=== PATIENT | female | born 1930 | race Caucasian/White ===

== ENCOUNTER 2017-04-12 19:32 | Inpatient (IN) ==
[2017-04-12] MEDS ORDERED: Naloxone 0.4 MG/ML INJ IVP ONE (19:42)
[2017-04-12] MEDS ORDERED: Ipratropium/Albuterol Neb 3 ML IH ONE (19:45)
[2017-04-12] MEDS ORDERED: 0.9 % Sodium Chloride 1,000 ML IVC SCH (19:45)
[2017-04-12] MEDS ORDERED: methylPREDNISolone 125 MG/2 ML VIAL IVP ONE (19:45)
[2017-04-12] MEDS ORDERED: 0.9 % Sodium Chloride 500 ML IVC ONE (19:45)
[2017-04-12 19:52] LABS: Basophils % 0.2 %; Eosinophils # 0.1 K/mcL (0.0-0.6); Eosinophils % 0.4 %; Hematocrit 33.2 % (35.3-44.9); Immature Granulocytes % 1.5 % (0-4); Lymphocytes % 5.6 %; Mean Corpuscular HGB Conc 30.1 g/dL (31.6-35.5); Mean Corpuscular Hemoglobin 28.3 pg (28.0-33.3); Mean Corpuscular Volume 94.1 fL (83.0-100.0); Mean Platelet Volume 9.7 fL (9.4-12.4); Monocytes # 1.3 K/mcL (0.0-1.3); Monocytes % 7.7 %; Neutrophils # 14.7 K/mcL (1.6-8.9); Platelet Count 405 K/mcL (140-400); Red Blood Count 3.53 M/mcL (3.82-4.97); Red Cell Distribution Width 14.5 % (11.5-14.5); Segmented Neutrophils % 84.6 %
[2017-04-12 20:01] LABS: Calcium 9.5 mg/dL (8.6-10.8); Potassium 4.2 mEq/L (3.5-4.5)
[2017-04-12 20:06] LABS: Bilirubin,Urine Negative (Negative); Blood,Urine Trace (Negative); Clarity,Urine Cloudy (Clear); Color,Urine Yellow (Yellow); Glucose,Urine (UA) Normal (Normal); Ketones,Urine Negative (Negative); Leukocyte Esterase,Urine Large (Negative); Nitrite,Urine Negative (Negative); Protein,Urine Negative (Neg-Trace); Specific Gravity,Urine 1.015 (1.010-1.025); Urobilinogen,Urine Normal (Normal)
[2017-04-12 20:07] LABS: Prothrombin Time 59.8 Seconds (9.4-12.1)
[2017-04-12 20:08] LABS: INR 5.4
[2017-04-12 20:08] LABS: Bacteria,Urine None Seen per hpf (None-Few); Hyaline Casts,Urine Few per lpf (None-Few); RBC,Urine 0-3 per hpf (0-3); Squamous Epithelial Cell,Urine Many per lpf (None-Few); WBC,Urine 50-100 per hpf (0-3)
[2017-04-12] MEDS ORDERED: Piperacillin/Tazobactam 3.375 GM in D5% in Water (Mini-Bag+) 100 ML IVPB ONE (20:17)
--- NOTE | 2017-04-12 20:19 | Emergency Department Note ---
Disposition Clinical Impression: Supratherapeutic INR, Acute on chronic respiratory failure with hypoxemia, Dehydration Community acquired pneumonia Qualifiers: Laterality: left Lung location: unspecified part of lung Qualified Code(s): J18.9 - Pneumonia, unspecified organism A-fib Qualifiers: Atrial fibrillation type: unspecified Qualified Code(s): I48.91 - Unspecified atrial fibrillation Chronic kidney disease (CKD) Qualifiers: Chronic kidney disease stage: unspecified stage Qualified Code(s): N18.9 - Chronic kidney disease, unspecified Sepsis Qualifiers: Sepsis type: sepsis due to unspecified organism Qualified Code(s): A41.9 - Sepsis, unspecified organism Disposition: Admitted As Inpatient Condition: Fair Time of Disposition: 20:35 SOB HPI - General Chief Complaint: ED Shortness of Breath/Dyspnea Stated Complaint: OLIVE/Pain Time Seen by Provider: 04/12/17 19:32 Source: patient, EMS Mode of arrival: EMS Limitations: altered mental status, physical limitation, age Nursing Notes Reviewed: Yes Vital Signs Reviewed: Yes - History of Present Illness 87-year-old female history of heart failure aortic aneurysm respiratory failure on oxygen patient has presented with 2 days worsening generalized weakness productive cough decreased activity per family, she has been on hospice for multiple comorbidities end-stage heart failure COPD, they like to revoke her hospice to admit her to the hospital for antibiotics if indicated. She has some sort of infection. Patient does not give much of a history, history is obtained from her family, son, who is at bedside. Denies chest pain abdominal pain. Pt Subjective Complaint: shortness of breath Severity: mild Improves with: oxygen Associated symptoms: Reports: cough, sputum production. Denies: chest pain - Related Data Home Medications Medication Instructions Recorded Confirmed Isosorbide MONOnitrate (24 HR) 30 mg PO QAM #0 05/15/15 04/12/17 [Imdur] LORazepam [Ativan] 0.5 mg PO Q4H PRN 04/22/16 04/12/17 Ondansetron [Zofran] 8 mg PO TID PRN 04/22/16 04/12/17 OxyCODONE Immed Rel [Roxicodone 5 5 mg PO Q4H PRN 04/22/16 04/12/17 MG] Polyethylene Glycol 3350 [MiraLAX] 17 gm PO DAILY 04/22/16 04/12/17 Potassium Chloride [Klor-Con 10 meq PO QAM 04/22/16 04/12/17 Sprinkle] TraZODone 25 mg PO BID PRN 04/22/16 04/12/17 Atropine Sulfate in 0.9% NaCl 2 drop SL Q2H PRN 04/12/17 04/12/17 [Atropine 0.01%-Ns Eye Drops] Diltiazem HCl [Diltiazem ER] 240 mg PO DAILY 04/12/17 04/12/17 Escitalopram Oxalate 5 mg PO QAM 04/12/17 04/12/17 Ipratropium/Albuterol Neb [Duoneb] 3 ml IH Q6H PRN 04/12/17 04/12/17 LORazepam [Ativan] 1 mg PO BID 04/12/17 04/12/17 Metoprolol XL (24 HR) Succ [Toprol 50 mg PO DAILY 04/12/17 04/12/17 XL] Morphine Oral CONC [Roxanol] 5 mg PO Q4H PRN 04/12/17 04/12/17 Omeprazole [PriLOSEC] 20 mg PO DAILY 04/12/17 04/12/17 Oxygen 3 - 5 l NS CONT 04/12/17 04/12/17 Previous Rx's Medication Instructions Recorded Furosemide [Lasix] 80 mg PO BID #60 tablet 03/14/16 Docusate [Colace] 100 mg PO BID #60 capsule 03/15/16 Allergies Allergy/AdvReac Type Severity Reaction Status Date / Time atorvastatin [From Lipitor] AdvReac See Verified 03/03/16 07:42 Comments Sulfa (Sulfonamide AdvReac Rash Verified 03/03/16 07:42 Antibiotics) Limitations: ROS unobtainable due to patients medical condition (Obtained partially from family) Past Medical History - Past Medical History Source: unable to obtain, old records reviewed, obtained from family Medical history: Reports: aortic aneurysm, arthritis, atrial fibrillation, CHF, COPD, coronary artery disease, DVT, GERD, hyperlipidemia, hypertension, osteoporosis, RA, renal disease, thyroid disease, venous stasis, valvular heart disease, other Surgical history: Reports: no surgical history, other Psychiatric history: Reports: anxiety - Social History Smoking Status: Never smoker Smokeless Tobacco Status: No Alcohol use: Reports: none Drug use: Reports: none Physical Exam Constitutional: Cachectic elderly female on oxygen sat 96%, tachypneic Eyes: PERRLA, sclera anicteric ENT & Mouth: MM dry Neck: normal inspection, neck is supple Resp: CTA bilaterally, no resp distress CV: irregularly irregular no m/g/r GI: normal inspection, soft, no guarding or rigidity Neuro: GCS E2V2M6, 10, CNII-XII grossly intact,pupils pinpoint reactive, OVIEDO Skin: on limited exam, skin with poor turgor - General Limitations: altered mental status, physical limitation, age General appearance: in distress Course Course Narrative: Cachectic elderly female appears dehydrated, discussed with the family she is a DNR CCA, but they would like antibiotics and to revoke hospice for an inpatient admission, septic workup initiated, due to the patient's heart failure comorbidity and age, if she does not meet criteria for severe sepsis we will not initiate 30 mL parking bolus but will start broad-spectrum antibiotics after lactate and blood cultures. - Reevaluation(s) Reevaluation #1: Patient with evidence of pneumonia and possible UTI started on Vanco and Zosyn empirically for community acquired pneumonia, sepsis, acute on chronic respiratory failure, dehydration failure to thrive admitted to the hospitalist service in serious condition Time: 20:34 Vital Signs Temperature 97.0 F L 04/12/17 19:33 Pulse Rate 78 04/12/17 19:33 Respiratory Rate 28 04/12/17 19:33 Blood Pressure 116/85 04/12/17 19:33 O2 Sat by Pulse Oximetry 96 04/12/17 19:33 Temperature 97.0 F L 04/12/17 19:33 Pulse Rate 91 04/12/17 20:33 Respiratory Rate 20 04/12/17 21:30 Blood Pressure 125/76 04/12/17 21:30 O2 Sat by Pulse Oximetry 96 04/12/17 20:33 Oxygen Delivery Oxygen Delivery Nasal Cannula Shortness of Breath/Dyspnea - Differential Diagnosis Likely: acute exacerbation of chronic obstructive airways disease, congestive heart failure, pneumonia, pulmonary embolism - Medical Records Medical records reviewed: Yes I reviewed the patient's medical records. - Lab Data Lab results reviewed: Yes I reviewed the patient's lab results. Result diagrams: 04/12/17 19:37 04/12/17 19:37 Lab Results 04/12/17 04/12/1717 Range/Units 19:37 19:37 19:37 WBC 17.4 H (4.3-11.1) K/mcL RBC 3.53 L (3.82-4.97) M/mcL Hgb 10.0 L (11.5-15.4) g/dL Hct 33.2 L (35.3-44.9) % MCV 94.1 (83.0-100.0) fL MCH 28.3 (28.0-33.3) pg MCHC 30.1 L (31.6-35.5) g/dL RDW 14.5 (11.5-14.5) % Plt Count 405 H (140-400) K/mcL MPV 9.7 (9.4-12.4) fL Immature Gran % 1.5 (0-4) % Seg Neutrophils % 84.6 % Lymphocytes % 5.6 % Monocytes % 7.7 % Eosinophils % 0.4 % Basophils % 0.2 % Neutrophils # 14.7 H (1.6-8.9) K/mcL Lymphocytes # 1.0 (0.6-4.6) K/mcL Monocytes # 1.3 (0.0-1.3) K/mcL Eosinophils # 0.1 (0.0-0.6) K/mcL Basophils # 0.0 (0.0-0.2) K/mcL PT (9.4-12.1) Seconds INR Sodium 142 (136-145) mEq/L Potassium 4.2 (3.5-4.5) mEq/L Chloride 99 (98-109) mEq/L Carbon Dioxide 31 H (19-29) mEq/L BUN 70 H (7-20) mg/dL Creatinine 1.84 H (0.57-1.11) mg/dL Est GFR ( Amer) 32 L (> 60) Est GFR (Non-Af Amer) 26 L (> 60) BUN/Creatinine Ratio 38 H (6-26) Glucose 131 H (70-99) mg/dL Calculated Osmolality 316 H (280-300) Lactic Acid 0.9 (0.5-2.2) mmol/L Calcium 9.5 (8.6-10.8) mg/dL Phosphorus 3.7 (2.3-4.7) mg/dL Magnesium 2.2 (1.6-2.6) mg/dL Total Bilirubin 1.6 H (0.2-1.2) mg/dL Direct Bilirubin 1.1 H (0.0-0.5) mg/dL Indirect Bilirubin 0.5 (0.0-1.2) mg/dL AST 10 (5-34) Units/L ALT 6 (0-55) Units/L Alkaline Phosphatase 166 H (38-126) Units/L Troponin I (0-0.03) ng/mL B-Natriuretic Peptide (0-100) pg/mL Serum Total Protein 7.3 (6.0-8.3) g/dL Albumin 2.4 L (3.5-5.0) g/dL Globulin 4.9 H (2.4-3.5) g/dL Albumin/Globulin Ratio 0.5 L (1.1-2.2) Urine Color (Yellow) Urine Clarity (Clear) Urine pH (5.0-8.0) pH Units Ur Specific [place] (1.010-1.025) Urine Protein (Neg-Trace) mg/dL Urine Glucose (UA) (Normal) mg/dL Urine Ketones (Negative) mg/dL Urine Blood (Negative) Urine Nitrite (Negative) Urine Bilirubin (Negative) Urine Urobilinogen (Normal) mg/dL Ur Leukocyte Esterase (Negative) Urine Microscopic RBC (0-3) per hpf Urine Microscopic WBC (0-3) per hpf Ur Squamous Epith Cells (None-Few) per lpf Urine Bacteria (None-Few) per hpf Hyaline Casts (None-Few) per lpf Ur Culture Indicated? (NO) 04/12/17 04/12/17 04/12/17 Range/Units 19:37 19:37 19:37 WBC (4.3-11.1) K/mcL RBC (3.82-4.97) M/mcL Hgb (11.5-15.4) g/dL Hct (35.3-44.9) % MCV (83.0-100.0) fL MCH (28.0-33.3) pg MCHC (31.6-35.5) g/dL RDW (11.5-14.5) % Plt Count (140-400) K/mcL MPV (9.4-12.4) fL Immature Gran % (0-4) % Seg Neutrophils % % Lymphocytes % % Monocytes % % Eosinophils % % Basophils % % Neutrophils # (1.6-8.9) K/mcL Lymphocytes # (0.6-4.6) K/mcL Monocytes # (0.0-1.3) K/mcL Eosinophils # (0.0-0.6) K/mcL Basophils # (0.0-0.2) K/mcL PT 59.8 H* (9.4-12.1) Seconds INR 5.4 H* Sodium (136-145) mEq/L Potassium (3.5-4.5) mEq/L Chloride (98-109) mEq/L Carbon Dioxide (19-29) mEq/L BUN (7-20) mg/dL Creatinine (0.57-1.11) mg/dL Est GFR ( Amer) (> 60) Est GFR (Non-Af Amer) (> 60) BUN/Creatinine Ratio (6-26) Glucose (70-99) mg/dL Calculated Osmolality (280-300) Lactic Acid (0.5-2.2) mmol/L Calcium (8.6-10.8) mg/dL Phosphorus (2.3-4.7) mg/dL Magnesium (1.6-2.6) mg/dL Total Bilirubin (0.2-1.2) mg/dL Direct Bilirubin (0.0-0.5) mg/dL Indirect Bilirubin (0.0-1.2) mg/dL AST (5-34) Units/L ALT (0-55) Units/L Alkaline Phosphatase (38-126) Units/L Troponin I 0.03 (0-0.03) ng/mL B-Natriuretic Peptide 1146 H (0-100) pg/mL Serum Total Protein (6.0-8.3) g/dL Albumin (3.5-5.0) g/dL Globulin (2.4-3.5) g/dL Albumin/Globulin Ratio (1.1-2.2) Urine Color (Yellow) Urine Clarity (Clear) Urine pH (5.0-8.0) pH Units Ur Specific [place] (1.010-1.025) Urine Protein (Neg-Trace) mg/dL Urine Glucose (UA) (Normal) mg/dL Urine Ketones (Negative) mg/dL Urine Blood (Negative) Urine Nitrite (Negative) Urine Bilirubin (Negative) Urine Urobilinogen (Normal) mg/dL Ur Leukocyte Esterase (Negative) Urine Microscopic RBC (0-3) per hpf Urine Microscopic WBC (0-3) per hpf Ur Squamous Epith Cells (None-Few) per lpf Urine Bacteria (None-Few) per hpf Hyaline Casts (None-Few) per lpf Ur Culture Indicated? (NO) 04/12/17 Range/Units 19:52 WBC (4.3-11.1) K/mcL RBC (3.82-4.97) M/mcL Hgb (11.5-15.4) g/dL Hct (35.3-44.9) % MCV (83.0-100.0) fL MCH (28.0-33.3) pg MCHC (31.6-35.5) g/dL RDW (11.5-14.5) % Plt Count (140-400) K/mcL MPV (9.4-12.4) fL Immature Gran % (0-4) % Seg Neutrophils % % Lymphocytes % % Monocytes % % Eosinophils % % Basophils % % Neutrophils # (1.6-8.9) K/mcL Lymphocytes # (0.6-4.6) K/mcL Monocytes # (0.0-1.3) K/mcL Eosinophils # (0.0-0.6) K/mcL Basophils # (0.0-0.2) K/mcL PT (9.4-12.1) Seconds INR Sodium (136-145) mEq/L Potassium (3.5-4.5) mEq/L Chloride (98-109) mEq/L Carbon Dioxide (19-29) mEq/L BUN (7-20) mg/dL Creatinine (0.57-1.11) mg/dL Est GFR ( Amer) (> 60) Est GFR (Non-Af Amer) (> 60) BUN/Creatinine Ratio (6-26) Glucose (70-99) mg/dL Calculated Osmolality (280-300) Lactic Acid (0.5-2.2) mmol/L Calcium (8.6-10.8) mg/dL Phosphorus (2.3-4.7) mg/dL Magnesium (1.6-2.6) mg/dL Total Bilirubin (0.2-1.2) mg/dL Direct Bilirubin (0.0-0.5) mg/dL Indirect Bilirubin (0.0-1.2) mg/dL AST (5-34) Units/L ALT (0-55) Units/L Alkaline Phosphatase (38-126) Units/L Troponin I (0-0.03) ng/mL B-Natriuretic Peptide (0-100) pg/mL Serum Total Protein (6.0-8.3) g/dL Albumin (3.5-5.0) g/dL Globulin (2.4-3.5) g/dL Albumin/Globulin Ratio (1.1-2.2) Urine Color Yellow (Yellow) Urine Clarity Cloudy A (Clear) Urine pH 5.0 (5.0-8.0) pH Units Ur Specific [place] 1.015 (1.010-1.025) Urine Protein Negative (Neg-Trace) mg/dL Urine Glucose (UA) Normal (Normal) mg/dL Urine Ketones Negative (Negative) mg/dL Urine Blood Trace H (Negative) Urine Nitrite Negative (Negative) Urine Bilirubin Negative (Negative) Urine Urobilinogen Normal (Normal) mg/dL Ur Leukocyte Esterase Large H (Negative) Urine Microscopic RBC 0-3 (0-3) per hpf Urine Microscopic WBC 50-100 H (0-3) per hpf Ur Squamous Epith Cells Many H (None-Few) per lpf Urine Bacteria None Seen (None-Few) per hpf Hyaline Casts Few (None-Few) per lpf Ur Culture Indicated? YES A (NO) - Radiology Data Radiology results reviewed: Yes I reviewed the patient's radiology results. Head CT 04/12/17 20:20 IMPRESSION: No acute intracranial hemorrhage or mass effect. D/ / Juarez Wagoner MD / Juarez Wagoner MD Interpreting Provider: Juarez Wagoner MD - EKG Data EKG attestation: Yes I reviewed and interpreted this EKG. Rhythm: Reports: A.Fib (A. fib 87 bpm QRS [address] segment elevations or depressions.) Critical Care Time Critical Care Time: Yes Total Critical Care Time: 35 Attestation: Critical care performed: Time is exclusive of separately billable procedures. Time includes: direct patient care, patient reassessment, coordination of patient care, interpretation of data (laboratory data, radiology data, and respiratory data), review of patient's medical records, medical consultation and documentation of patient care. Procedures included in critical care time: Procedures excluded from critical care time: Attestation Statement - Attestation Attestation: I, Monty Romero MD, personally evaluated this patient and discussed their management with the resident physician. I reviewed the resident's note and agree with the documented findings, medical decision making, and plan of care. 87-year-old female with history of COPD and CHF presents to the emergency department by ambulance for decreased mental status and increased difficulty breathing. Patient seen on arrival and unable to provide any history or review of systems. She is breathing spontaneously in response to physical stimuli. Family later arrived and reported patient has had increasing symptoms and worsening over the past 2 days. On examination patient is a thin elderly female some physical stimuli. She is unable to answer questions. There is no cyanosis or diaphoresis. Breath sounds are decreased bilaterally with bibasilar rales. Heart is irregularly irregular. Normal rate. Abdomen is soft with normal bowel sounds. Labs reviewed. WBC 17. INR 5.4. Urinalysis shows 50-100 WBCs with large leukocyte esterase. Head CT negative. Chest x-ray shows bilateral perihilar infiltrates, CHF versus pneumonia. The hospitalist, Dr. Garcia, was consulted and accepted admission of the patient.
[2017-04-12] MEDS ORDERED: Vancomycin 750 MG in D5% in Water 250 ML IVPB ONE ×2 (20:23→20:32)
[2017-04-12 20:37] LABS: Albumin 2.4 g/dL (3.5-5.0); Albumin/Globulin Ratio 0.5 (1.1-2.2); Bilirubin,Direct 1.1 mg/dL (0.0-0.5); Bilirubin,Indirect 0.5 mg/dL (0.0-1.2); Bilirubin,Total 1.6 mg/dL (0.2-1.2); Globulin 4.9 g/dL (2.4-3.5); Magnesium 2.2 mg/dL (1.6-2.6); Phosphorous 3.7 mg/dL (2.3-4.7); Total Protein 7.3 g/dL (6.0-8.3)
[2017-04-12] MEDS ORDERED: Naloxone 0.4 MG/ML INJ IVP PRN (22:17)
[2017-04-12] MEDS ORDERED: Albuterol 2.5 MG/3 ML NEBULIZER IH PRN (22:26)
--- NOTE | 2017-04-12 22:29 | Internal Med History&Physical ---
<Kaylyn Crowley - Last Filed: 04/12/17 23:29> Date of Encounter: 04/12/17 Time of Encounter: 22:11 Assessment and Plan (1) Community acquired pneumonia Current visit: Yes Status: Acute 1 patient has been experiencing increasing shortness of breath as well as cough sputum change of thick yellow sputum. Reports fevers chest x-ray Bilateral perihilar infiltrates. We will continue with oxygen titrated to maintain SPO2 greater than 92% 2 continue with bronchodilators 3 blood cultures have been obtained continue with Teddy and Zomarileen 4 sputum culture Qualifiers: Laterality: unspecified laterality Qualified Code(s): J18.9 - Pneumonia, unspecified organism (2) Acute on chronic respiratory failure Current visit: Yes Status: Acute 1 patient has end-stage COPD oxygen dependent has been increasingly short of breath over the past week requiring increase and oxygen supplementation. She is presently DNR CCA DNI. We will continue to titrate oxygen to maintain SPO2 greater than 92% Qualifiers: Respiratory failure complication: hypoxia Qualified Code(s): J96.21 - Acute and chronic respiratory failure with hypoxia (3) UTI (urinary tract infection) Current visit: No Status: Acute 1 we will continue with Zosyn pending culture sensitivity Qualifiers: Urinary tract infection type: site unspecified Hematuria presence: without hematuria Qualified Code(s): N39.0 - Urinary tract infection, site not specified (4) Chronic kidney disease (CKD), stage III (moderate) Current visit: No Status: Chronic 1 creatinine is 1.89 which appears to be around baseline. We will continue to monitor 2 avoid nephrotoxins 3 renal dose antibiotics 4 monitor intake and output daily weights (5) HTN (hypertension), benign Current visit: No Status: Chronic Presently stable-we will continue with metoprolol/ Lasix 2 low sodium diet (6) Diastolic heart failure due to valvular disease Current visit: No Status: Chronic 1 patient has history of multiple valvular disease echo 03/29/16 EF of 55-60%. We will give IV Lasix 40 mg twice a day now 2 monitor intake and output daily weight 3 low sodium diet Qualifiers: Heart failure chronicity: chronic Qualified Code(s): I50.32 - Chronic diastolic (congestive) heart failure; I38 - Endocarditis, valve unspecified (7) Coronary artery disease Current visit: No Status: Chronic Continue with beta blockers and nitrates Continue with oxygen Qualifiers: Coronary Disease-Associated Artery/Lesion type: [place] artery [place] vs. transplanted heart: [place] heart Associated angina: without angina Qualified Code(s): I25.10 - Atherosclerotic heart disease of [place] coronary artery without angina pectoris (8) A-fib Current visit: Yes Status: Chronic 1 presently in sinus rhythm we will continue with metoprolol and Cardizem Qualifiers: Atrial fibrillation type: unspecified Qualified Code(s): I48.91 - Unspecified atrial fibrillation (9) DVT prophylaxis Current visit: No Status: Acute Heparin subcutaneous (10) COPD (chronic obstructive pulmonary disease) with emphysema Current visit: No Status: Chronic 1 continued with oxygen Bronchodilators Qualifiers: Emphysema type: unspecified Qualified Code(s): J43.9 - Emphysema, unspecified Internal Medicine - H&P: HPI Chief complaint: SOB Admitted From: Emergency Dept Plans for Post Hospital Care: Home History of present illness: Ms. Carrington is a 87 year old female past medical history of oxygen dependent COPD atrial fibrillation diastolic heart failure multi valvular disease coronary artery disease hypertension hyperlipidemia and thyroid disease CK D stage IV aortic aneurysm. The patient is in hospice care for multiple, comorbidities including end-stage heart failure and COPD. The past 2 days she has been experiencing increasing shortness of breath generalized weakness productive cough decreased oral intake. She was placed on a Z-Hemanth Cele has taken 2 doses. Her son states that he has seen her significantly declined in the past 2 days, concerned that she will not improve. She brought to the ER for evaluation, according to the ER records they would like to revoke her hospice status so that she could be admitted for antibiotic treatment if indicated. Requesting DNR CCA DNI. Laboratory was obtained which did feel some leukocytosis 17.4 troponin 0.03 BNP was 146 chemistry creatinine 1.89 lactate 0.9 PTT was 59.8 INR is 5.4. Urinalysis revealed large amount of leuks. Chest x-ray Bilateral perihilar infiltrates. Small effusions are suggested. CHF versus pneumonia. CT of head was negative for any endocrine abnormalities. Blood cultures were obtained patient was given IV fluid as well as inconsistent. She has been admitted for further workup evaluation. Presently the patient appears frail, she is lethargic and arouses to verbal stimuli. Follows simple commands oriented to name and place. Lung sounds scattered crackles in the bases. Respirations slightly labored with some accessory muscle, heart sounds hyperdynamic S1-S2 no rubs clicks or gallops murmurs noted abdomen soft and nontender no pedal edema. She is hemodynamically stable with time. I did review CODE STATUS with patient's son who is at bedside who did agree with DNR CCA DNI Past Med Surg Social Fam HX - Past Medical History Medical history: aortic aneurysm, arthritis, atrial fibrillation, CHF, COPD, coronary artery disease, DVT, GERD, hyperlipidemia, hypertension, osteoporosis, RA, renal disease, thyroid disease, venous stasis, valvular heart disease, other Psychiatric history: anxiety - Past Surgical History Surgical History: no surgical history, other - Social History Smoking Status: Never smoker Smokeless Tobacco Status: No Alcohol use: none Drug use: none - Family History Father Family Member Ethnicity: Non- Living Status: Hx Family Cardiac Disorders: Yes Hx Family Respiratory Disorders: No Hx Family Cancer: No Hx Family GI Disorders: No Hx Family Endocrine Disorder: No Hx Family Neuromuscular Disorders: No Hx Family Neurologic Disorders: No Hx Family HEENT Disorders: No Hx Family Autoimmune Disorders: No Internal Medicine - H&P: Meds Isosorbide MONOnitrate (24 HR) [Imdur] 30 mg PO QAM #0 05/15/15 [History] Furosemide [Lasix] 80 mg PO BID #60 tablet 03/14/16 [Rx] Docusate [Colace] 100 mg PO BID #60 capsule 03/15/16 [Rx] LORazepam [Ativan] 0.5 mg PO Q4H PRN 04/22/16 [History] Ondansetron [Zofran] 8 mg PO TID PRN 04/22/16 [History] OxyCODONE Immed Rel [Roxicodone 5 MG] 5 mg PO Q4H PRN 04/22/16 [History] Polyethylene Glycol 3350 [MiraLAX] 17 gm PO DAILY 04/22/16 [History] Potassium Chloride [Klor-Con Sprinkle] 10 meq PO QAM 04/22/16 [History] TraZODone 25 mg PO BID PRN 04/22/16 [History] Atropine Sulfate in 0.9% NaCl [Atropine 0.01%-Ns Eye Drops] 2 drop SL Q2H PRN [History] Diltiazem HCl [Diltiazem ER] 240 mg PO DAILY 04/12/17 [History] Escitalopram Oxalate 5 mg PO QAM 04/12/17 [History] Ipratropium/Albuterol Neb [Duoneb] 3 ml IH Q6H PRN 04/12/17 [History] LORazepam [Ativan] 1 mg PO BID 04/12/17 [History] Metoprolol XL (24 HR) Succ [Toprol XL] 50 mg PO DAILY 04/12/17 [History] Morphine Oral CONC [Roxanol] 5 mg PO Q4H PRN 04/12/17 [History] Omeprazole [PriLOSEC] 20 mg PO DAILY 04/12/17 [History] Oxygen 3 - 5 l NS CONT 04/12/17 [History] 3 Allergy/AdvReac Type Severity Reaction Status Date / Time atorvastatin [From Lipitor] AdvReac See Verified 03/03/16 07:42 Comments Sulfa (Sulfonamide AdvReac Rash Verified 03/03/16 07:42 Antibiotics) ROS unobtainable: due to mental status All Systems PM: A 10-system review of systems was performed and is negative for pertinent findings except as documented above in the HPI. - Constitutional Vitals: Temp Pulse Resp BP Pulse Ox 97.0 F L 91 20 125/76 96 04/12/17 19:33 04/12/17 20:33 04/12/17 21:30 04/12/17 21:30 04/12/17 20:33 General appearance: Present: cachectic, A&O X 2, mild distress - Head Head exam: Present: atraumatic, normocephalic - Eye Eye exam: Present: PERRL, conjuntiva pink, sclera anicteric Pupils: Present: PERRL - Neck Neck exam general surgery: Present: supple, trachea midline. Absent: lymphadenopathy - Respiratory Respiratory exam: Present: rales. Absent: accessory muscle use, rhonchi, wheezes - Cardiovascular Cardiovascular exam: Present: RRR, +S1, +S2. Absent: diastolic murmur, gallop, rubs, systolic murmur - GI/Abdominal GI/Abdominal exam: Present: normal bowel sounds, soft, no peritoneal signs. Absent: distended, tenderness - Extremities Exam Extremities exam: Present: warm, radial pulses palpable and symmetrical. Absent : calf tenderness, cyanotic, pedal edema - Neurological Exam Neurological exam: Present: CN II-XII intact, no focal deficits. Absent: pronater drift, facial droop, speech deficit Additional comments: Lethargic - Skin Skin exam: Present: dry, intact Internal Med - H&P Results - Labs CBC & Chem 7: 04/12/17 19:37 04/12/17 19:37 - Diagnostic Studies Other Images Additional comments: Chest X-Ray 04/12/17 19:41 IMPRESSION: Bilateral perihilar infiltrates. Small effusions are suggested. Differential includes CHF versus pneumonia. D/ / Hebrert Solares MD / Herbert Solares MD Interpreting Provider: Herbert Solares MD Head CT 04/12/17 20:20 IMPRESSION: No acute intracranial hemorrhage or mass effect. D/ / Juarez Wagoner MD / Juarez Wagoner MD Interpreting Provider: uJarez Wagoner MD <Jordi Salazar - Last Filed: 04/13/17 01:11> Date of Encounter: 04/13/17 Internal Medicine - H&P: HPI History of present illness: Ms. Carrington is a 87 year old female All Systems PM: A 10-system review of systems was performed and is negative for pertinent findings except as documented above in the HPI. - Constitutional Vitals: Temp Pulse Resp BP Pulse Ox 98.8 F 82 80 121/102 99 04/13/17 00:49 04/13/17 00:49 04/13/17 00:49 04/13/17 00:49 04/13/17 00:49 Internal Med - H&P Results - Labs CBC & Chem 7: 04/13/17 00:12 04/13/17 00:12 Labs: Short CBC 04/13/17 Range/Units 00:12 WBC 16.3 H (4.3-11.1) K/mcL Hgb 9.5 L (11.5-15.4) g/dL Hct 31.3 L (35.3-44.9) % Plt Count 381 (140-400) K/mcL Neutrophils # 15.4 H (1.6-8.9) K/mcL BMP 04/13/17 00:12 Sodium 143 Potassium 3.6 Chloride 103 Carbon Dioxide 28 BUN 65 H Creatinine 1.58 H Glucose 167 H Calcium 9.0 Cardiac Enzymes 04/13/17 Range/Units 00:12 Troponin I 0.02 (0-0.03) ng/mL - Attending Attestation I examined this patient and my medical decision-making was reviewed with the Resident Physician. I agree with the documented findings, disposition and treatment plan as described except to the extent set forth below. Patient is a 87-year-old female with multiple comorbid conditions. She presents to the ED with complaints of shortness of breath. She was brought in by family. She has been on hospice at home. She was started on azithromycin a few days ago for upper and lower respiratory infection. Her condition is slowly declining over the past 2 days. She was brought in for possible pneumonia. Patient is drowsy and lethargic. She opens eyes to verbal commands. She does not follow verbal commands well. Initial evaluation revealed bilateral infiltrates seen on x-ray. Her white count is elevated and INR is also elevated. Her H&H is stable and she does not have any active bleeding. Patient will need IV antibiotics and DuoNeb breathing treatment and IV Lasix. I discussed about the patient's guarded condition and poor prognosis with the son. He wants patient to be DNR Comfort Care and DNI status. He states that he wants the patient to be treated with IV antibiotics and breathing treatments and does not want any other aggressive measures. Palliative care will evaluate patient in the morning.
[2017-04-12] MEDS: Ipratropium/Albuterol Neb 3 ML IH SCH (23:42)
[2017-04-12] MEDS: *HR* Morphine 2 MG/ML SYRINGE IVP PRN (23:43)
[2017-04-12] MEDS: Furosemide 40 MG/4 ML VIAL IVP SCH (23:49)
[2017-04-13 00:30] LABS: Basophils % 0.2 %; Hematocrit 31.3 % (35.3-44.9); Hemoglobin 9.5 g/dL (11.5-15.4); Immature Granulocytes % 1.9 % (0-4); Lymphocytes # 0.4 K/mcL (0.6-4.6); Lymphocytes % 2.2 %; Mean Corpuscular HGB Conc 30.4 g/dL (31.6-35.5); Mean Corpuscular Hemoglobin 28.7 pg (28.0-33.3); Mean Corpuscular Volume 94.6 fL (83.0-100.0); Mean Platelet Volume 9.6 fL (9.4-12.4); Monocytes # 0.2 K/mcL (0.0-1.3); Monocytes % 1.2 %; Neutrophils # 15.4 K/mcL (1.6-8.9); Platelet Count 381 K/mcL (140-400); Red Blood Count 3.31 M/mcL (3.82-4.97); Red Cell Distribution Width 14.4 % (11.5-14.5); Segmented Neutrophils % 94.5 %
[2017-04-13 00:33] LABS: Potassium 3.6 mEq/L (3.5-4.5)
[2017-04-13 00:43] LABS: INR 4.8; Prothrombin Time 53.9 Seconds (9.4-12.1)
[2017-04-13] MEDS: Ipratropium/Albuterol Neb 3 ML IH SCH ×6 (04:06→23:06)
[2017-04-13 04:51] LABS: INR 4.3
[2017-04-13 04:53] LABS: Prothrombin Time 47.9 Seconds (9.4-12.1)
[2017-04-13] MEDS ORDERED: Vancomycin (wt based) 1,000 MG VIAL IVPB SCH (09:00)
--- NOTE | 2017-04-13 10:47 | Palliative - Consult Note ---
Date of Encounter: 04/13/17 Time of Encounter: 09:25 - Assessment and Plan (1) Diastolic heart failure due to valvular disease Current Visit: No Status: Chronic Assessment and plan: Patient is reportedly hospice eligible for diastolic heart failure. The patient 's family's plan is to reinstate hospice on discharge. Plan as per hospitalist team. Qualifiers: Heart failure chronicity: chronic Qualified Code(s): I50.32 - Chronic diastolic (congestive) heart failure; I38 - Endocarditis, valve unspecified (2) A-fib Current Visit: Yes Status: Chronic Qualifiers: Atrial fibrillation type: unspecified Qualified Code(s): I48.91 - Unspecified atrial fibrillation (3) CHF (congestive heart failure) Current Visit: No Status: Acute Assessment and plan: plan per hospitalist team. Qualifiers: Congestive heart failure type: diastolic Congestive heart failure chronicity: chronic Qualified Code(s): I50.32 - Chronic diastolic (congestive ) heart failure (4) COPD (chronic obstructive pulmonary disease) with emphysema Current Visit: No Status: Chronic Assessment and plan: Currently exacerbated by what is felt to be community-acquired pneumonia. Patient is being given inhalers, oxygen antibiotics. Hospitalist team. Qualifiers: Emphysema type: unspecified Qualified Code(s): J43.9 - Emphysema, unspecified (5) Goals of care, counseling/discussion Current Visit: No Status: Acute Assessment and plan: Patient's son DNR CCA DNI. Was done yesterday when the patient was admitted. As of care family would like the patient to return to [facility] for discharge. As [facility] has already determined this eligibility will continue to evaluate. And currently is for the patient to return back to [facility]. Agents goals are to get IV antibiotic therapy get over this home. Turn home. They have adequate help at home with [facility]. Overall plan is for the patient to return to [facility] for further care. The patient does need to have a medical power of senior attorney established have discussed this with social work. As the patient's CODE STATUS is appropriate for her condition and desires, and a discharge plan for returning to hospice care has already been established palliative we will sign off. Please reconsult if there is anything we can help with. tHere will be no palliative care available over this weekend. (6) Community acquired pneumonia Current Visit: Yes Status: Acute Qualifiers: Laterality: unspecified laterality Qualified Code(s): J18.9 - Pneumonia, unspecified organism Palliative-CN HPI - Data of Consult Patient: known to practice within the last 3 years Requesting Physician: Lizandro Hernandez MD Primary Care Provider: Connie Grijalva MD - Consult Narrative Palliative Care/Comfort Measures: Palliative care History of present illness: Ms. Carrington is a 87 year old female His with [facility] hospice for COPD CHF combind comorbidities. In [place] shortness of breath with cough over the last several days so nausea but no vomiting and then altered mental status so-so C with low-grade fever.. Family decided to rescind hospice for the purposes of getting IV antibiotic treatment. Over they do plan to return to [facility] hospice after discharge. Patient has had no pain with urination no Fernando or urgency the family is aware of and although the patient does urinate a great deal there has been no change in her urination habits. Does have abdominal pain which she cannot describe well. Is described as a generalized discomfort in her abdomen that comes and goes better with Zantac. And at times requiring further pain medication Palliative care was consul regarding CHF, COPD, A. fib and DNR status. ECV and assessment and plan. CC: Lizandro Hernandez MD Cough, increasing shortness of breath and altered mental status Past Med Surg Social Fam HX - Past Medical History Medical history: aortic aneurysm, arthritis, atrial fibrillation, CHF, COPD, coronary artery disease, DVT, GERD, hyperlipidemia, hypertension, osteoporosis, RA, renal disease, thyroid disease, venous stasis, valvular heart disease, other Psychiatric history: anxiety - Past Surgical History Surgical History: no surgical history, other - Social History Smoking Status: Never smoker Smokeless Tobacco Status: No Alcohol use: none Drug use: none - Family History Father Family Member Ethnicity: Non- Living Status: Hx Family Cardiac Disorders: Yes Hx Family Respiratory Disorders: No Hx Family Cancer: No Hx Family GI Disorders: No Hx Family Endocrine Disorder: No Hx Family Neuromuscular Disorders: No Hx Family Neurologic Disorders: No Hx Family HEENT Disorders: No Hx Family Autoimmune Disorders: No Medications and Allergies Isosorbide MONOnitrate (24 HR) [Imdur] 30 mg PO QAM #0 05/15/15 [History] Furosemide [Lasix] 80 mg PO BID #60 tablet 03/14/16 [Rx] Docusate [Colace] 100 mg PO BID #60 capsule 03/15/16 [Rx] LORazepam [Ativan] 0.5 mg PO Q4H PRN 04/22/16 [History] Ondansetron [Zofran] 8 mg PO TID PRN 04/22/16 [History] OxyCODONE Immed Rel [Roxicodone 5 MG] 5 mg PO Q4H PRN 04/22/16 [History] Polyethylene Glycol 3350 [MiraLAX] 17 gm PO DAILY 04/22/16 [History] Potassium Chloride [Klor-Con Sprinkle] 10 meq PO QAM 04/22/16 [History] TraZODone 25 mg PO BID PRN 04/22/16 [History] Atropine Sulfate in 0.9% NaCl [Atropine 0.01%-Ns Eye Drops] 2 drop SL Q2H PRN [History] Diltiazem HCl [Diltiazem ER] 240 mg PO DAILY 04/12/17 [History] Escitalopram Oxalate 5 mg PO QAM 04/12/17 [History] Ipratropium/Albuterol Neb [Duoneb] 3 ml IH Q6H PRN 04/12/17 [History] LORazepam [Ativan] 1 mg PO BID 04/12/17 [History] Metoprolol XL (24 HR) Succ [Toprol XL] 50 mg PO DAILY 04/12/17 [History] Morphine Oral CONC [Roxanol] 5 mg PO Q4H PRN 04/12/17 [History] Omeprazole [PriLOSEC] 20 mg PO DAILY 04/12/17 [History] Oxygen 3 - 5 l NS CONT 04/12/17 [History] 3 Allergy/AdvReac Type Severity Reaction Status Date / Time atorvastatin [From Lipitor] AdvReac See Verified 03/03/16 07:42 Comments Sulfa (Sulfonamide AdvReac Rash Verified 03/03/16 07:42 Antibiotics) - Constitutional Constitutional ROS PAL: decreased appetite, anorexia, chills, fever(s) - EENT Eyes: no discharge, no loss of vision, no pain Ears: no ear discharge, no ear pain Ears, nose, mouth, throat: no facial pain, no hoarseness, no lip swelling - Cardiovascular Cardiovascular ROS: dyspnea on exertion, irregular heart rhythm, no chest pain, no chest pain at rest, no chest pain with activity - Respiratory Respiratory: cough, dyspnea, dyspnea on exertion, excessive phlegm production, change in phlegm color - Gastrointestinal Gastrointestinal: no constipation, no diarrhea, no nausea, no vomiting - Genitourinary Palliative ROS female: no urinary frequency, no urinary hesitancy, no urinary incontinence, no urinary urgency - Musculoskeletal Musculoskeletal ROS IM: no back pain, no joint swelling, no muscle weakness - Integumentary ROS Integumentary: skin ulcer (History of, but healing well.) - Neurological Neurological ROS: no confusion, no convulsions, no disequilibrium, no dizziness - Psychiatric Psychiatric general PM: difficulty concentrating, no homicidal ideation, no hopelessness, no suicidal ideation - Endocrine Endocrine IM: other (History of thyroid disease.) Palliative Care-Exam - Constitutional Vitals: Temp Pulse Resp BP Pulse Ox 98.8 F 82 16 121/102 99 04/13/17 00:49 04/13/17 00:49 04/13/17 07:53 04/13/17 00:49 04/13/17 07:53 General appearance: Present: no acute distress - Head Head Exam: Present: atraumatic, normal inspection - Eye Eye exam: Present: EOMI, normal appearance - ENT ENT exam: Present: mucous membranes moist - Neck Neck exam: Present: normal inspection - Respiratory Respiratory exam: Present: decreased breath sounds, rhonchi - Cardiovascular Cardiovascular exam: Present: irregular rhythm - GI/Abdominal Exam GI/Abdominal exam: Present: normal bowel sounds, soft. Absent: tenderness - Extremities Exam Extremities exam: Present: normal inspection (Evidence of healed ulcers.). Absent: pedal edema, tenderness - Neurological Exam Neurological exam: Present: alert, CN II-XII intact - Psychiatric Psychiatric exam: Present: normal affect, normal mood. Absent: agitated, anxious - Skin Skin exam: Present: dry, warm Internal Medicine - CN: Reslt - Labs CBC & Chem 7: 04/13/17 00:12 04/13/17 00:12 Labs: Short CBC 04/13/17 Range/Units 00:12 WBC 16.3 H (4.3-11.1) K/mcL Hgb 9.5 L (11.5-15.4) g/dL Hct 31.3 L (35.3-44.9) % Plt Count 381 (140-400) K/mcL Neutrophils # 15.4 H (1.6-8.9) K/mcL BMP 04/13/17 00:12 Sodium 143 Potassium 3.6 Chloride 103 Carbon Dioxide 28 BUN 65 H Creatinine 1.58 H Glucose 167 H Calcium 9.0 Cardiac Enzymes 04/13/17 04/13/17 Range/Units 00:12 07:12 Troponin I 0.02 0.02 (0-0.03) ng/mL - ABG Interpretation ABG results: PT/INR, D-dimer PT 47.9 Seconds (9.4-12.1) H* 04/13/17 04:31 Consult Discharge Plan - Plan Referrals: Connie Grijalva MD [Primary Care Provider] - Palliative Quality Palliative Quality: Screen for Code Status: Yes, Screen for Goals of Care: Yes, Screen for Pain: Yes, If Pain Regimen Started, Initiate Bowel Regimen: Yes, Screen for Nausea/Vomitting: Yes
[2017-04-13] MEDS: Isosorbide MONOnitrate (24 HR) 30 MG TAB.ER.24H PO SCH (11:38)
[2017-04-13] MEDS: Diltiazem CD (24hr) 240 MG CAPSULE PO SCH (11:38)
[2017-04-13] MEDS: Furosemide 40 MG/4 ML VIAL IVP SCH ×2 (11:39→16:14)
[2017-04-13] MEDS: Metoprolol XL (24 HR) Succ 50 MG TAB.ER.24H PO SCH (11:39)
[2017-04-13] MEDS: Piperacillin/Tazobactam 3.375 GM in D5% in Water (Mini-Bag+) 100 ML IVPB SCH ×2 (14:04→22:13)
[2017-04-13] MEDS: Vancomycin 750 MG in D5% in Water 250 ML IVPB SCH (14:13)
--- NOTE | 2017-04-13 17:01 | Internal Med Progress Note ---
Date of Encounter: 04/13/17 Time of Encounter: 08:00 - Assessment and plan (1) HTN (hypertension), benign Current Visit: No Status: Chronic Assessment and plan: Continue home medications (2) A-fib Current Visit: Yes Status: Chronic Assessment and plan: Heart rate is well controlled. Patient is on Coumadin for anticoagulation, right now INR supratherapeutic. Continue monitor PT/INR and pharmacy dose Coumadin Qualifiers: Atrial fibrillation type: unspecified Qualified Code(s): I48.91 - Unspecified atrial fibrillation (3) UTI (urinary tract infection) Current Visit: No Status: Acute Assessment and plan: On Vanco and Zosyn now. Follow-up urine culture and adjust antibiotic per sensitivity Qualifiers: Urinary tract infection type: site unspecified Hematuria presence: without hematuria Qualified Code(s): N39.0 - Urinary tract infection, site not specified (4) Acute on chronic respiratory failure Current Visit: Yes Status: Acute Assessment and plan: Probably due to pneumonia. We will continue to treat underlying disease and give patient's supportive treatment with oxygen and symptomatic treatment with bronchodilator Qualifiers: Respiratory failure complication: hypoxia Qualified Code(s): J96.21 - Acute and chronic respiratory failure with hypoxia (5) Acute on chronic diastolic (congestive) heart failure Current Visit: No Status: Acute Assessment and plan: Patient has elevated BNP. Chest x-ray also suspected pulmonary edema. Will continue IV Lasix, strict in and out. (6) COPD (chronic obstructive pulmonary disease) with emphysema Current Visit: No Status: Chronic Assessment and plan: Stable. No wheezing. Qualifiers: Emphysema type: centrilobular Qualified Code(s): J43.2 - Centrilobular emphysema (7) Chronic kidney disease (CKD) Current Visit: Yes Status: Chronic Assessment and plan: Cr at her baseline. Continue monitor renal function Qualifiers: Chronic kidney disease stage: stage 3 (moderate) Qualified Code(s): N18.3 - Chronic kidney disease, stage 3 (moderate) (8) DVT prophylaxis Current Visit: No Status: Acute Assessment and plan: Patient is on Coumadin (9) Community acquired pneumonia Current Visit: Yes Status: Acute Assessment and plan: Will continue vancomycin and Zosyn treatment at this point as treatment works with improvement of the symptoms. May deescalate antibiotic per further culture results. Patient is at high risk because she is on vancomycin, needed close monitoring Qualifiers: Laterality: unspecified laterality Qualified Code(s): J18.9 - Pneumonia, unspecified organism - Time Spent With Patient Greater than 35 minutes - Subjective Interval history: Patient is a 87-year-old female admitted for pneumonia. Past medical history is significant for CHF, COPD, CAD, A. fib. I saw and examined the patient today. She is still weak, in mild respiratory distress. Mental status has improved the per family. Vitals are stable. We will continue antibiotic, and bronchodilator treatment. Hold steroid because patient had no wheezing right now. - Constitutional Vitals: Temp Pulse Resp BP Pulse Ox 98.8 F 82 16 121/102 94 04/13/17 00:49 04/13/17 00:49 04/13/17 15:54 04/13/17 00:49 04/13/17 15:54 General appearance: Present: cachectic, A&O X 2, mild distress, answers questions appropriately - Head Head exam: Present: atraumatic, normocephalic - Eye Eye exam: Present: PERRL, conjuntiva pink, sclera anicteric Pupils: Present: PERRL - Neck Neck exam general surgery: Present: supple, trachea midline. Absent: lymphadenopathy - Respiratory Respiratory exam: Present: CTAB. Absent: accessory muscle use, rales, rhonchi, wheezes - Cardiovascular Cardiovascular exam: Present: RRR, +S1, +S2. Absent: diastolic murmur, gallop, rubs, systolic murmur - GI/Abdominal GI/Abdominal exam: Present: normal bowel sounds, soft, no peritoneal signs. Absent: distended, tenderness - Extremities Exam Extremities exam: Present: warm, radial pulses palpable and symmetrical. Absent : calf tenderness, cyanotic, pedal edema - Neurological Exam Neurological exam: Present: CN II-XII intact, no focal deficits. Absent: pronater drift, facial droop, speech deficit - Skin Skin exam: Present: dry, intact Internal Medicine: Result - Labs CBC & Chem 7: 04/13/17 00:12 04/13/17 00:12 Labs: Short CBC 04/13/17 Range/Units 00:12 WBC 16.3 H (4.3-11.1) K/mcL Hgb 9.5 L (11.5-15.4) g/dL Hct 31.3 L (35.3-44.9) % Plt Count 381 (140-400) K/mcL Neutrophils # 15.4 H (1.6-8.9) K/mcL BMP 04/13/17 00:12 Sodium 143 Potassium 3.6 Chloride 103 Carbon Dioxide 28 BUN 65 H Creatinine 1.58 H Glucose 167 H Calcium 9.0 Cardiac Enzymes 04/13/17 04/13/17 Range/Units 00:12 07:12 Troponin I 0.02 0.02 (0-0.03) ng/mL - ABG Interpretation ABG results: PT/INR, D-dimer PT 47.9 Seconds (9.4-12.1) H* 04/13/17 04:31 Consult Discharge Plan - Plan Referrals: Connie Grijlava MD [Primary Care Provider] -
[2017-04-13] MEDS ORDERED: Atropine Sulfate 1% 40 DROP/2 ML BOTTLE SL PRN (17:04)
[2017-04-13] MEDS ORDERED: Warfarin perPT PO PRN (18:00)
[2017-04-13] MEDS: *HR* Morphine 2 MG/ML SYRINGE IVP PRN (19:49)
[2017-04-13] MEDS: Acetaminophen 325 MG TABLET PO PRN (22:13)
[2017-04-13] MEDS: Ondansetron ODT 4 MG TAB.RAPDIS PO PRN (22:13)
[2017-04-14] MEDS ORDERED: methylPREDNISolone 125 MG/2 ML VIAL IVP SCH (01:00)
[2017-04-14] MEDS: Ipratropium/Albuterol Neb 3 ML IH SCH ×6 (03:27→23:14)
[2017-04-14 06:05] LABS: Hematocrit 27.3 % (35.3-44.9); Hemoglobin 8.7 g/dL (11.5-15.4); Immature Platelets 1.7 % (1.1-6.1); Lymphocytes # 0.5 K/mcL (0.6-4.6); Mean Corpuscular HGB Conc 31.9 g/dL (31.6-35.5); Mean Corpuscular Hemoglobin 28.9 pg (28.0-33.3); Mean Corpuscular Volume 90.7 fL (83.0-100.0); Mean Platelet Volume 9.6 fL (9.4-12.4); Platelet Count 338 K/mcL (140-400); Red Blood Count 3.01 M/mcL (3.82-4.97); Red Cell Distribution Width 14.4 % (11.5-14.5)
[2017-04-14 06:17] LABS: Calcium 8.8 mg/dL (8.6-10.8); Potassium 3.4 mEq/L (3.5-4.5)
[2017-04-14 06:23] LABS: Prothrombin Time 44.3 Seconds (9.4-12.1)
[2017-04-14 06:39] LABS: Monocytes # 0.7 K/mcL (0.0-1.3); Neutrophils # 7.1 K/mcL (1.6-8.9); Platelet Estimate Normal (Normal); Reactive Lymphocytes Present (Not Present)
[2017-04-14] MEDS: Metoprolol XL (24 HR) Succ 50 MG TAB.ER.24H PO SCH (10:06)
[2017-04-14] MEDS: Diltiazem CD (24hr) 240 MG CAPSULE PO SCH (10:06)
[2017-04-14] MEDS: Isosorbide MONOnitrate (24 HR) 30 MG TAB.ER.24H PO SCH (10:07)
[2017-04-14] MEDS: Furosemide 40 MG/4 ML VIAL IVP SCH ×2 (10:07→16:12)
[2017-04-14] MEDS: Piperacillin/Tazobactam 3.375 GM in D5% in Water (Mini-Bag+) 100 ML IVPB SCH (10:10)
[2017-04-14] MEDS: Vancomycin 750 MG in D5% in Water 250 ML IVPB SCH (14:58)
--- NOTE | 2017-04-14 16:54 | Internal Med Progress Note ---
Date of Encounter: 04/14/17 Time of Encounter: 10:00 - Assessment and plan (1) HTN (hypertension), benign Current Visit: No Status: Chronic Assessment and plan: Continue home medications (2) A-fib Current Visit: Yes Status: Chronic Assessment and plan: Heart rate is well controlled. Patient is on Coumadin for anticoagulation, right now INR supratherapeutic. Continue monitor PT/INR and pharmacy dose Coumadin Qualifiers: Atrial fibrillation type: unspecified Qualified Code(s): I48.91 - Unspecified atrial fibrillation (3) UTI (urinary tract infection) Current Visit: No Status: Acute Assessment and plan: On Vanco and Zosyn now. Follow-up urine culture and adjust antibiotic per sensitivity Qualifiers: Urinary tract infection type: site unspecified Hematuria presence: without hematuria Qualified Code(s): N39.0 - Urinary tract infection, site not specified (4) Acute on chronic respiratory failure Current Visit: Yes Status: Acute Assessment and plan: Probably due to pneumonia. We will continue to treat underlying disease and give patient's supportive treatment with oxygen and symptomatic treatment with bronchodilator Qualifiers: Respiratory failure complication: hypoxia Qualified Code(s): J96.21 - Acute and chronic respiratory failure with hypoxia (5) Acute on chronic diastolic (congestive) heart failure Current Visit: No Status: Acute Assessment and plan: Patient has elevated BNP. Chest x-ray also suspected pulmonary edema. After IV Lasix treatment, Volume status appears improved, switched back to by mouth Lasix. (6) COPD (chronic obstructive pulmonary disease) with emphysema Current Visit: No Status: Chronic Assessment and plan: Stable. Scattered wheezing, on bronchodilator. Qualifiers: Emphysema type: centrilobular Qualified Code(s): J43.2 - Centrilobular emphysema (7) Chronic kidney disease (CKD) Current Visit: Yes Status: Chronic Assessment and plan: Cr at her baseline. Continue monitor renal function Qualifiers: Chronic kidney disease stage: stage 3 (moderate) Qualified Code(s): N18.3 - Chronic kidney disease, stage 3 (moderate) (8) DVT prophylaxis Current Visit: No Status: Acute Assessment and plan: Patient is on Coumadin (9) Community acquired pneumonia Current Visit: Yes Status: Acute Assessment and plan: Deescalate antibiotic to azithromysin and rocephin as blood culture negative.. Qualifiers: Laterality: unspecified laterality Qualified Code(s): J18.9 - Pneumonia, unspecified organism - Time Spent With Patient 25 - 35 minutes - Subjective Interval history: Patient is a 87-year-old female admitted for pneumonia. Past medical history is significant for CHF, COPD, CAD, A. fib. I saw and examined the patient today. She is still weak, improved respiratory distress. Mental status also has improved. Vitals are stable. We will continue antibiotic, and bronchodilator treatment. - Constitutional Vitals: Temp Pulse Resp BP Pulse Ox 97.4 F L 84 17 110/74 97 04/14/17 15:27 04/14/17 15:27 04/14/17 15:27 04/14/17 15:27 04/14/17 15:27 General appearance: Present: cachectic, A&O X 2, mild distress, answers questions appropriately - Head Head exam: Present: atraumatic, normocephalic - Eye Eye exam: Present: PERRL, conjuntiva pink, sclera anicteric Pupils: Present: PERRL - Neck Neck exam general surgery: Present: supple, trachea midline. Absent: lymphadenopathy - Respiratory Respiratory exam: Present: CTAB, wheezes (Scattered wheezes on the left side). Absent: accessory muscle use, rales, rhonchi - Cardiovascular Cardiovascular exam: Present: RRR, +S1, +S2. Absent: diastolic murmur, gallop, rubs, systolic murmur - GI/Abdominal GI/Abdominal exam: Present: normal bowel sounds, soft, no peritoneal signs. Absent: distended, tenderness - Extremities Exam Extremities exam: Present: warm, radial pulses palpable and symmetrical. Absent : calf tenderness, cyanotic, pedal edema - Neurological Exam Neurological exam: Present: CN II-XII intact, oriented X3, no focal deficits. Absent: pronater drift, facial droop, speech deficit - Skin Skin exam: Present: dry, intact Internal Medicine: Result - Labs CBC & Chem 7: 04/14/17 05:41 04/14/17 05:41 Labs: Short CBC 04/14/17 Range/Units 05:41 WBC 8.3 (4.3-11.1) K/mcL Hgb 8.7 L (11.5-15.4) g/dL Hct 27.3 L (35.3-44.9) % Plt Count 338 (140-400) K/mcL Neutrophils # 7.1 (1.6-8.9) K/mcL BMP 04/14/17 05:41 Sodium 137 Potassium 3.4 L Chloride 97 L Carbon Dioxide 31 H BUN 54 H Creatinine 1.20 H Glucose 145 H Calcium 8.8 - ABG Interpretation ABG results: PT/INR, D-dimer PT 44.3 Seconds (9.4-12.1) H* 04/14/17 05:41 Consult Discharge Plan - Plan Referrals: Connie Grijalva MD [Primary Care Provider] -
[2017-04-14] MEDS: Azithromycin 500 MG in D5% in Water 250 ML IVPB SCH (18:14)
[2017-04-14] MEDS: Furosemide 40 MG TABLET PO SCH (18:14)
[2017-04-14] MEDS: *HR* Morphine 2 MG/ML SYRINGE IVP PRN (18:37)
[2017-04-15] MEDS: *HR* Morphine 2 MG/ML SYRINGE IVP PRN ×5 (03:18→22:43)
[2017-04-15] MEDS: Ipratropium/Albuterol Neb 3 ML IH SCH ×6 (04:03→23:31)
[2017-04-15 05:20] LABS: Hematocrit 29.1 % (35.3-44.9); Hemoglobin 9.4 g/dL (11.5-15.4); Mean Corpuscular HGB Conc 32.3 g/dL (31.6-35.5); Mean Corpuscular Volume 89.8 fL (83.0-100.0); Mean Platelet Volume 9.5 fL (9.4-12.4); Platelet Count 366 K/mcL (140-400); Red Blood Count 3.24 M/mcL (3.82-4.97); Red Cell Distribution Width 14.3 % (11.5-14.5)
[2017-04-15 05:21] LABS: INR 3.4; Prothrombin Time 38.1 Seconds (9.4-12.1)
[2017-04-15 05:32] LABS: Calcium 8.8 mg/dL (8.6-10.8); Potassium 3.1 mEq/L (3.5-4.5)
[2017-04-15 05:50] LABS: Eosinophils # 0.2 K/mcL (0.0-0.6); Lymphocytes # 0.9 K/mcL (0.6-4.6); Monocytes # 0.5 K/mcL (0.0-1.3); Neutrophils # 9.7 K/mcL (1.6-8.9); Platelet Estimate Normal (Normal)
[2017-04-15 05:51] LABS: Hypochromasia Present (Not Present); Polychromasia 1+ (Not Present)
[2017-04-15] MEDS: Ondansetron ODT 4 MG TAB.RAPDIS PO PRN ×2 (07:51→13:24)
[2017-04-15] MEDS ORDERED: Aminoglycoside Consult 1 EACH MC ONE (08:31)
[2017-04-15] MEDS: Isosorbide MONOnitrate (24 HR) 30 MG TAB.ER.24H PO SCH (09:15)
[2017-04-15] MEDS: Metoprolol XL (24 HR) Succ 50 MG TAB.ER.24H PO SCH (09:15)
[2017-04-15] MEDS: Diltiazem CD (24hr) 240 MG CAPSULE PO SCH (09:16)
[2017-04-15] MEDS: Furosemide 40 MG TABLET PO SCH ×2 (09:16→16:50)
[2017-04-15] MEDS: Acetaminophen 325 MG TABLET PO PRN (11:37)
--- NOTE | 2017-04-15 14:34 | Internal Med Progress Note ---
Date of Encounter: 04/15/17 Time of Encounter: 09:00 - Assessment and plan (1) HTN (hypertension), benign Current Visit: No Status: Chronic Assessment and plan: Continue home medications (2) A-fib Current Visit: Yes Status: Chronic Assessment and plan: Heart rate is well controlled. Patient is on Coumadin for anticoagulation. Continue monitor PT/INR and pharmacy dose Coumadin Qualifiers: Atrial fibrillation type: unspecified Qualified Code(s): I48.91 - Unspecified atrial fibrillation (3) UTI (urinary tract infection) Current Visit: No Status: Acute Assessment and plan: On Vanco and Zosyn now. Follow-up urine culture and adjust antibiotic per sensitivity Qualifiers: Urinary tract infection type: site unspecified Hematuria presence: without hematuria Qualified Code(s): N39.0 - Urinary tract infection, site not specified (4) Acute on chronic respiratory failure Current Visit: Yes Status: Acute Assessment and plan: Probably due to pneumonia. We will continue to treat underlying disease and give patient's supportive treatment with oxygen and symptomatic treatment with bronchodilator. Add prednisone today Qualifiers: Respiratory failure complication: hypoxia Qualified Code(s): J96.21 - Acute and chronic respiratory failure with hypoxia (5) Acute on chronic diastolic (congestive) heart failure Current Visit: No Status: Acute Assessment and plan: Patient has elevated BNP. Chest x-ray also suspected pulmonary edema. After IV Lasix treatment, Volume status appears improved, switched back to by mouth Lasix. (6) COPD (chronic obstructive pulmonary disease) with emphysema Current Visit: No Status: Chronic Assessment and plan: Stable. Scattered wheezing, on bronchodilator, add prednisone. Qualifiers: Emphysema type: centrilobular Qualified Code(s): J43.2 - Centrilobular emphysema (7) Chronic kidney disease (CKD) Current Visit: Yes Status: Chronic Assessment and plan: Cr at her baseline. Continue monitor renal function Qualifiers: Chronic kidney disease stage: stage 3 (moderate) Qualified Code(s): N18.3 - Chronic kidney disease, stage 3 (moderate) (8) DVT prophylaxis Current Visit: No Status: Acute Assessment and plan: Patient is on Coumadin (9) Community acquired pneumonia Current Visit: Yes Status: Acute Assessment and plan: Deescalate antibiotic to azithromysin and rocephin as blood culture negative.. Qualifiers: Laterality: unspecified laterality Qualified Code(s): J18.9 - Pneumonia, unspecified organism - Time Spent With Patient 25 - 35 minutes - Subjective Interval history: Patient is a 87-year-old female admitted for pneumonia. Past medical history is significant for CHF, COPD, CAD, A. fib. I saw and examined the patient today. She is still weak, improved respiratory distress but still wheezing on left side. Mental status has improved. Vitals are stable. We will continue antibiotic, and bronchodilator treatment. add prednisone 40mg po daily. - Constitutional Vitals: Temp Pulse Resp BP Pulse Ox 97.7 F 92 25 132/82 100 04/15/17 04:00 04/15/17 09:18 04/15/17 11:56 04/15/17 09:18 04/15/17 11:56 General appearance: Present: cachectic, A&O X 2, mild distress, answers questions appropriately - Head Head exam: Present: atraumatic, normocephalic - Eye Eye exam: Present: PERRL, conjuntiva pink, sclera anicteric Pupils: Present: PERRL - Neck Neck exam general surgery: Present: supple, trachea midline. Absent: lymphadenopathy - Respiratory Respiratory exam: Present: CTAB. Absent: accessory muscle use, rales, rhonchi, wheezes - Cardiovascular Cardiovascular exam: Present: RRR, +S1, +S2. Absent: diastolic murmur, gallop, rubs, systolic murmur - GI/Abdominal GI/Abdominal exam: Present: normal bowel sounds, soft, no peritoneal signs. Absent: distended, tenderness - Extremities Exam Extremities exam: Present: warm, radial pulses palpable and symmetrical. Absent : calf tenderness, cyanotic, pedal edema - Neurological Exam Neurological exam: Present: CN II-XII intact, oriented X3, no focal deficits. Absent: pronater drift, facial droop, speech deficit - Skin Skin exam: Present: dry, intact Internal Medicine: Result - Labs CBC & Chem 7: 04/15/17 04:30 04/15/17 04:30 Labs: Short CBC 04/15/17 Range/Units 04:30 WBC 11.5 H (4.3-11.1) K/mcL Hgb 9.4 L (11.5-15.4) g/dL Hct 29.1 L (35.3-44.9) % Plt Count 366 (140-400) K/mcL Neutrophils # 9.7 H (1.6-8.9) K/mcL BMP 04/15/17 04:30 Sodium 136 Potassium 3.1 L Chloride 94 L Carbon Dioxide 33 H BUN 46 H Creatinine 1.26 H Glucose 111 H Calcium 8.8 - ABG Interpretation ABG results: PT/INR, D-dimer PT 38.1 Seconds (9.4-12.1) H 04/15/17 04:30 - Impressions Impressions Chest X-Ray 04/15/17 09:17 IMPRESSION: There is mildly improved aeration of the lungs compared to the chest x-ray 04/12/2017. D/ / Dejuan Hernandez MD / Dejuan Hernandez MD Interpreting Provider: Dejuan Hernandez MD Consult Discharge Plan - Plan Referrals: Connie Grijalva MD [Primary Care Provider] -
[2017-04-15] MEDS: predniSONE 20 MG TABLET PO SCH (16:51)
[2017-04-15] MEDS: Azithromycin 500 MG in D5% in Water 250 ML IVPB SCH (16:51)
[2017-04-15 18:51] LABS: Bilirubin,Urine Negative (Negative); Blood,Urine Small (Negative); Clarity,Urine Clear (Clear); Color,Urine Yellow (Yellow); Glucose,Urine (UA) Normal (Normal); Ketones,Urine Negative (Negative); Leukocyte Esterase,Urine Negative (Negative); Nitrite,Urine Negative (Negative); Protein,Urine Trace mg/dL (Neg-Trace); Specific Gravity,Urine 1.013 (1.010-1.025); Urobilinogen,Urine Normal (Normal)
[2017-04-15 18:52] LABS: Bacteria,Urine None Seen per hpf (None-Few); Hyaline Casts,Urine None Seen per lpf (None-Few); Squamous Epithelial Cell,Urine Many per lpf (None-Few); WBC,Urine 0-3 per hpf (0-3)
[2017-04-16] MEDS: *HR* Morphine 2 MG/ML SYRINGE IVP PRN (02:45)
[2017-04-16] MEDS ORDERED: *HR* Labetalol 20 MG/4 ML SYRINGE IVP PRN (03:16)
[2017-04-16] MEDS: Ipratropium/Albuterol Neb 3 ML IH SCH ×5 (03:51→20:27)
[2017-04-16 05:40] LABS: Hematocrit 29.6 % (35.3-44.9); Hemoglobin 9.4 g/dL (11.5-15.4); Mean Corpuscular HGB Conc 31.8 g/dL (31.6-35.5); Mean Corpuscular Hemoglobin 28.1 pg (28.0-33.3); Mean Corpuscular Volume 88.6 fL (83.0-100.0); Mean Platelet Volume 9.5 fL (9.4-12.4); Platelet Count 400 K/mcL (140-400); Red Blood Count 3.34 M/mcL (3.82-4.97); Red Cell Distribution Width 14.6 % (11.5-14.5)
[2017-04-16 05:42] LABS: INR 2.2
[2017-04-16 05:53] LABS: Calcium 8.6 mg/dL (8.6-10.8)
[2017-04-16 06:13] LABS: Potassium 4.2 mEq/L (3.5-4.5)
[2017-04-16 06:41] LABS: Lymphocytes # 0.6 K/mcL (0.6-4.6); Monocytes # 0.6 K/mcL (0.0-1.3); Neutrophils # 13.6 K/mcL (1.6-8.9)
[2017-04-16 06:42] LABS: Hypochromasia Present (Not Present); Platelet Estimate Normal (Normal)
[2017-04-16] MEDS: Isosorbide MONOnitrate (24 HR) 30 MG TAB.ER.24H PO SCH (08:35)
[2017-04-16] MEDS: Furosemide 40 MG TABLET PO SCH ×2 (08:35→16:39)
[2017-04-16] MEDS: Diltiazem CD (24hr) 240 MG CAPSULE PO SCH (08:35)
[2017-04-16] MEDS: predniSONE 20 MG TABLET PO SCH (08:35)
[2017-04-16] MEDS: Metoprolol XL (24 HR) Succ 50 MG TAB.ER.24H PO SCH (08:35)
[2017-04-16] MEDS ORDERED: traZODone 50 MG TABLET PO PRN (11:20)
[2017-04-16] MEDS: *HR* OxyCODONE Immed Rel 5 MG TABLET PO PRN ×3 (12:06→22:40)
[2017-04-16] MEDS: *HR* LORazepam 0.5 MG TABLET PO PRN ×2 (12:06→23:49)
[2017-04-16] MEDS: Azithromycin 500 MG in D5% in Water 250 ML IVPB SCH (16:39)
--- NOTE | 2017-04-16 17:18 | Internal Med Progress Note ---
Date of Encounter: 04/16/17 Time of Encounter: 09:00 - Assessment and plan (1) HTN (hypertension), benign Current Visit: No Status: Chronic Assessment and plan: Continue home medications (2) A-fib Current Visit: Yes Status: Chronic Assessment and plan: Heart rate is well controlled. Patient is on Coumadin for anticoagulation. Continue monitor PT/INR and pharmacy dose Coumadin Qualifiers: Atrial fibrillation type: unspecified Qualified Code(s): I48.91 - Unspecified atrial fibrillation (3) UTI (urinary tract infection) Current Visit: No Status: Acute Assessment and plan: On rocephin now. Follow-up urine culture and adjust antibiotic per sensitivity Qualifiers: Urinary tract infection type: site unspecified Hematuria presence: without hematuria Qualified Code(s): N39.0 - Urinary tract infection, site not specified (4) Acute on chronic respiratory failure Current Visit: Yes Status: Acute Assessment and plan: Probably due to pneumonia. We will continue to treat underlying disease and give patient's supportive treatment with oxygen and symptomatic treatment with bronchodilator and steroid. Qualifiers: Respiratory failure complication: hypoxia Qualified Code(s): J96.21 - Acute and chronic respiratory failure with hypoxia (5) Acute on chronic diastolic (congestive) heart failure Current Visit: No Status: Acute Assessment and plan: Patient has elevated BNP. Chest x-ray also suspected pulmonary edema. After IV Lasix treatment, Volume status appears improved, switched back to by mouth Lasix. (6) COPD (chronic obstructive pulmonary disease) with emphysema Current Visit: No Status: Chronic Assessment and plan: Stable. Scattered wheezing resolved, on bronchodilator and prednisone. Qualifiers: Emphysema type: centrilobular Qualified Code(s): J43.2 - Centrilobular emphysema (7) Chronic kidney disease (CKD) Current Visit: Yes Status: Chronic Assessment and plan: Cr at her baseline. Continue monitor renal function Qualifiers: Chronic kidney disease stage: stage 3 (moderate) Qualified Code(s): N18.3 - Chronic kidney disease, stage 3 (moderate) (8) DVT prophylaxis Current Visit: No Status: Acute Assessment and plan: Patient is on Coumadin (9) Community acquired pneumonia Current Visit: Yes Status: Acute Assessment and plan: Deescalate antibiotic to azithromysin and rocephin as blood culture negative.. Qualifiers: Laterality: unspecified laterality Qualified Code(s): J18.9 - Pneumonia, unspecified organism (10) Anxiety Current Visit: Yes Status: Acute Assessment and plan: Resume home anxiety medication as the patient mental status has improved - Time Spent With Patient 25 - 35 minutes - Subjective Interval history: Patient is a 87-year-old female admitted for pneumonia. Past medical history is significant for CHF, COPD, CAD, A. fib. I saw and examined the patient today. She is still weak, improved respiratory distress. No wheezes today. Mental status has improved to baseline. has mild tachycardia, possibly due to anxiety, otherwise Vitals are stable. We will continue antibiotic, steroid, and bronchodilator treatment. Resume home anxiety medication. - Constitutional Vitals: Temp Pulse Resp BP Pulse Ox 98.2 F 94 24 139/80 98 04/16/17 15:56 04/16/17 15:56 04/16/17 15:56 04/16/17 15:56 04/16/17 15:56 General appearance: Present: cachectic, mild distress, A&O X 3, answers questions appropriately - Head Head exam: Present: atraumatic, normocephalic - Eye Eye exam: Present: PERRL, conjuntiva pink, sclera anicteric Pupils: Present: PERRL - Neck Neck exam general surgery: Present: supple, trachea midline. Absent: lymphadenopathy - Respiratory Respiratory exam: Present: CTAB. Absent: accessory muscle use, rales, rhonchi, wheezes - Cardiovascular Cardiovascular exam: Present: RRR, +S1, +S2. Absent: diastolic murmur, gallop, rubs, systolic murmur - GI/Abdominal GI/Abdominal exam: Present: normal bowel sounds, soft, no peritoneal signs. Absent: distended, tenderness - Extremities Exam Extremities exam: Present: warm, radial pulses palpable and symmetrical. Absent : calf tenderness, cyanotic, pedal edema - Neurological Exam Neurological exam: Present: CN II-XII intact, oriented X3, no focal deficits. Absent: pronater drift, facial droop, speech deficit - Skin Skin exam: Present: dry, intact Internal Medicine: Result - Labs CBC & Chem 7: 04/16/17 04:50 04/16/17 04:50 Labs: Short CBC 04/16/17 Range/Units 04:50 WBC 14.8 H (4.3-11.1) K/mcL Hgb 9.4 L (11.5-15.4) g/dL Hct 29.6 L (35.3-44.9) % Plt Count 400 (140-400) K/mcL Neutrophils # 13.6 H (1.6-8.9) K/mcL BMP 04/16/17 04:50 Sodium 133 L Potassium 4.2 D Chloride 94 L Carbon Dioxide 30 H BUN 38 H Creatinine 1.16 H Glucose 123 H Calcium 8.6 Urine 04/15/17 Range/Units 18:42 Urine Color Yellow (Yellow) Urine Clarity Clear (Clear) Urine pH 6.0 (5.0-8.0) pH Units Ur Specific [place] 1.013 (1.010-1.025) Urine Protein Trace (Neg-Trace) mg/dL Urine Glucose (UA) Normal (Normal) mg/dL - ABG Interpretation ABG results: PT/INR, D-dimer PT 24.0 Seconds (9.4-12.1) H 04/16/17 04:50 Consult Discharge Plan - Plan Referrals: Connie Grijalva MD [Primary Care Provider] -
[2017-04-16] MEDS ORDERED: *HR* Warfarin 1 MG TABLET PO ONE (18:00)
[2017-04-16] MEDS: *HR* LORazepam 1 MG TABLET PO SCH (19:46)
[2017-04-16] MEDS: Lactobacillus 1 EACH CAP.SPRINK PO SCH (19:46)
[2017-04-16] MEDS: metroNIDAZOLE 500 MG TABLET PO SCH (19:47)
--- NOTE | 2017-04-16 20:57 | Electrocardiograph Report ---
[place] [id number] Test Date: 2017-04-12 Pat Name: Kristine Carrington Department: 103 Room: 2NE19 Gender: F Gate Clerk: : [id number] Requested By: Jed Locke Order Number: [id number] Reading MD: Robert Kendrick MD Measurements Intervals [place] Rate: 87 P: CT: 0 QRS: 21 QRSD: 98 T: 22 QT: 353 QTc: 397 Interpretive Statements ATRIAL FIBRILLATION WITH ABERRANT CONDUCTION OR VENTRICULAR PREMATURE COMPLEXES Electronically Signed On 04-16-2017 20:55:59 EDT by Robert Kendrick MD
[2017-04-17] MEDS: Ipratropium/Albuterol Neb 3 ML IH SCH ×7 (00:29→23:13)
[2017-04-17 05:16] LABS: Hematocrit 28.3 % (35.3-44.9); Mean Corpuscular HGB Conc 31.8 g/dL (31.6-35.5); Mean Corpuscular Hemoglobin 28.6 pg (28.0-33.3); Mean Corpuscular Volume 89.8 fL (83.0-100.0); Mean Platelet Volume 9.4 fL (9.4-12.4); Platelet Count 342 K/mcL (140-400); Red Blood Count 3.15 M/mcL (3.82-4.97); Red Cell Distribution Width 14.6 % (11.5-14.5)
[2017-04-17 05:21] LABS: INR 1.7
[2017-04-17 05:27] LABS: Calcium 8.8 mg/dL (8.6-10.8); Potassium 3.5 mEq/L (3.5-4.5)
[2017-04-17 05:57] LABS: Lymphocytes # 0.3 K/mcL (0.6-4.6); Neutrophils # 14.5 K/mcL (1.6-8.9); Platelet Estimate Normal (Normal)
[2017-04-17] MEDS: Isosorbide MONOnitrate (24 HR) 30 MG TAB.ER.24H PO SCH (08:50)
[2017-04-17] MEDS: metroNIDAZOLE 500 MG TABLET PO SCH ×3 (08:50→19:35)
[2017-04-17] MEDS: Furosemide 40 MG TABLET PO SCH ×2 (08:51→16:19)
[2017-04-17] MEDS: predniSONE 20 MG TABLET PO SCH (08:51)
[2017-04-17] MEDS: Metoprolol XL (24 HR) Succ 50 MG TAB.ER.24H PO SCH (08:51)
[2017-04-17] MEDS: Diltiazem CD (24hr) 240 MG CAPSULE PO SCH (08:51)
[2017-04-17] MEDS: *HR* LORazepam 1 MG TABLET PO SCH ×2 (08:52→19:35)
[2017-04-17] MEDS: *HR* OxyCODONE Immed Rel 5 MG TABLET PO PRN (08:59)
[2017-04-17] MEDS: Lactobacillus 1 EACH CAP.SPRINK PO SCH (14:52)
--- NOTE | 2017-04-17 16:53 | Internal Med Progress Note ---
Date of Encounter: 04/17/17 Time of Encounter: 10:00 - Assessment and plan (1) HTN (hypertension), benign Current Visit: No Status: Chronic Assessment and plan: Continue home medications (2) A-fib Current Visit: Yes Status: Chronic Assessment and plan: Heart rate is well controlled. Patient is on Coumadin for anticoagulation. Continue monitor PT/INR and pharmacy dose Coumadin Qualifiers: Atrial fibrillation type: unspecified Qualified Code(s): I48.91 - Unspecified atrial fibrillation (3) UTI (urinary tract infection) Current Visit: No Status: Acute Assessment and plan: Urine culture negative. Antibiotic has been stopped Qualifiers: Urinary tract infection type: site unspecified Hematuria presence: without hematuria Qualified Code(s): N39.0 - Urinary tract infection, site not specified (4) Acute on chronic respiratory failure Current Visit: Yes Status: Acute Assessment and plan: Probably due to pneumonia. Improved now. Have finished the 5 day antibiotic course. Hold antibiotics for now because patient developed C. difficile colitis. Taper down steroids Qualifiers: Respiratory failure complication: hypoxia Qualified Code(s): J96.21 - Acute and chronic respiratory failure with hypoxia (5) Acute on chronic diastolic (congestive) heart failure Current Visit: No Status: Acute Assessment and plan: Patient has elevated BNP. Chest x-ray also suspected pulmonary edema. After IV Lasix treatment, Volume status appears improved, switched back to by mouth Lasix. (6) COPD (chronic obstructive pulmonary disease) with emphysema Current Visit: No Status: Chronic Assessment and plan: Stable. Scattered wheezing resolved, on bronchodilator and prednisone. Qualifiers: Emphysema type: centrilobular Qualified Code(s): J43.2 - Centrilobular emphysema (7) Chronic kidney disease (CKD) Current Visit: Yes Status: Chronic Assessment and plan: Cr at her baseline. Continue monitor renal function Qualifiers: Chronic kidney disease stage: stage 3 (moderate) Qualified Code(s): N18.3 - Chronic kidney disease, stage 3 (moderate) (8) DVT prophylaxis Current Visit: No Status: Acute Assessment and plan: Patient is on Coumadin (9) Community acquired pneumonia Current Visit: Yes Status: Acute Assessment and plan: Patient has been treated with antibiotic for 5 days. Symptoms improved. DC antibiotics for now. Qualifiers: Laterality: unspecified laterality Qualified Code(s): J18.9 - Pneumonia, unspecified organism (10) Anxiety Current Visit: Yes Status: Acute Assessment and plan: Resume home anxiety medication as the patient mental status has improved (11) C. difficile colitis Current Visit: Yes Status: Acute Assessment and plan: C. difficile positive with diarrhea. Started Flagyl by mouth. Closely monitor patient. - Time Spent With Patient 25 - 35 minutes - Subjective Interval history: Patient is a 87-year-old female admitted for pneumonia. Past medical history is significant for CHF, COPD, CAD, A. fib. I saw and examined the patient today. She is still weak, improved respiratory distress. trace wheezes today. Mental status has improved to baseline. Vitals are stable. has diarrhea with C Diff positive. Pt has been treated with abx for 5 days for pneumonia, will hold abx, start flagyl po and probiotics. - Constitutional Vitals: Temp Pulse Resp BP Pulse Ox 98.0 F 71 14 104/69 99 04/17/17 16:25 04/17/17 16:25 04/17/17 16:25 04/17/17 16:25 04/17/17 16:25 General appearance: Present: cachectic, mild distress, A&O X 3, answers questions appropriately - Head Head exam: Present: atraumatic, normocephalic - Eye Eye exam: Present: PERRL, conjuntiva pink, sclera anicteric Pupils: Present: PERRL - Neck Neck exam general surgery: Present: supple, trachea midline. Absent: lymphadenopathy - Respiratory Respiratory exam: Present: CTAB, wheezes (Trace wheezes bilaterally). Absent: accessory muscle use, rales, rhonchi - Cardiovascular Cardiovascular exam: Present: RRR, +S1, +S2. Absent: diastolic murmur, gallop, rubs, systolic murmur - GI/Abdominal GI/Abdominal exam: Present: normal bowel sounds, soft, no peritoneal signs. Absent: distended, tenderness - Extremities Exam Extremities exam: Present: warm, radial pulses palpable and symmetrical. Absent : calf tenderness, cyanotic, pedal edema - Neurological Exam Neurological exam: Present: CN II-XII intact, oriented X3, no focal deficits. Absent: pronater drift, facial droop, speech deficit - Skin Skin exam: Present: dry, intact Internal Medicine: Result - Labs CBC & Chem 7: 04/17/17 04:13 04/17/17 04:13 Labs: Short CBC 04/17/17 Range/Units 04:13 WBC 15.1 H (4.3-11.1) K/mcL Hgb 9.0 L (11.5-15.4) g/dL Hct 28.3 L (35.3-44.9) % Plt Count 342 (140-400) K/mcL Neutrophils # 14.5 H (1.6-8.9) K/mcL BMP 04/17/17 04:13 Sodium 133 L Potassium 3.5 Chloride 93 L Carbon Dioxide 31 H BUN 38 H Creatinine 1.17 H Glucose 108 H Calcium 8.8 - ABG Interpretation ABG results: PT/INR, D-dimer PT 19.0 Seconds (9.4-12.1) H 04/17/17 04:13 Consult Discharge Plan - Plan Referrals: Connie Griajlva MD [Primary Care Provider] -
[2017-04-17] MEDS ORDERED: *HR* Warfarin 1 MG TABLET PO ONE (18:00)
[2017-04-18] MEDS: Ipratropium/Albuterol Neb 3 ML IH SCH ×5 (05:45→19:52)
[2017-04-18 05:49] LABS: INR 1.9; Prothrombin Time 20.2 Seconds (9.4-12.1)
[2017-04-18 06:27] LABS: Hematocrit 29.7 % (35.3-44.9); Hemoglobin 9.4 g/dL (11.5-15.4); Lymphocytes # 0.8 K/mcL (0.6-4.6); Mean Corpuscular HGB Conc 31.6 g/dL (31.6-35.5); Mean Corpuscular Hemoglobin 28.7 pg (28.0-33.3); Mean Corpuscular Volume 90.8 fL (83.0-100.0); Mean Platelet Volume 9.4 fL (9.4-12.4); Platelet Count 390 K/mcL (140-400); Red Blood Count 3.27 M/mcL (3.82-4.97); Red Cell Distribution Width 15.1 % (11.5-14.5)
[2017-04-18 07:04] LABS: Calcium 8.5 mg/dL (8.6-10.8); Potassium 4.1 mEq/L (3.5-4.5)
[2017-04-18 07:10] LABS: Monocytes # 0.4 K/mcL (0.0-1.3); Neutrophils # 18.7 K/mcL (1.6-8.9); Platelet Estimate Normal (Normal)
[2017-04-18] MEDS: Ondansetron ODT 4 MG TAB.RAPDIS PO PRN (08:58)
[2017-04-18] MEDS: *HR* OxyCODONE Immed Rel 5 MG TABLET PO PRN ×3 (11:19→21:59)
[2017-04-18] MEDS: Metoprolol XL (24 HR) Succ 50 MG TAB.ER.24H PO SCH (11:19)
[2017-04-18] MEDS: metroNIDAZOLE 500 MG TABLET PO SCH ×3 (11:21→20:02)
[2017-04-18] MEDS: Diltiazem CD (24hr) 240 MG CAPSULE PO SCH (11:21)
[2017-04-18] MEDS: predniSONE 20 MG TABLET PO SCH (11:21)
[2017-04-18] MEDS: Furosemide 40 MG TABLET PO SCH ×2 (11:21→17:49)
[2017-04-18] MEDS: *HR* LORazepam 1 MG TABLET PO SCH ×2 (11:21→20:02)
[2017-04-18] MEDS: Lactobacillus 1 EACH CAP.SPRINK PO SCH (11:21)
[2017-04-18] MEDS: Isosorbide MONOnitrate (24 HR) 30 MG TAB.ER.24H PO SCH (11:21)
--- NOTE | 2017-04-18 15:37 | Internal Med Progress Note ---
Date of Encounter: 04/18/17 Time of Encounter: 10:00 - Assessment and plan (1) HTN (hypertension), benign Current Visit: No Status: Chronic Assessment and plan: Continue home medications (2) A-fib Current Visit: Yes Status: Chronic Assessment and plan: Heart rate is well controlled. Patient is on Coumadin for anticoagulation. Continue monitor PT/INR and pharmacy dose Coumadin Qualifiers: Atrial fibrillation type: unspecified Qualified Code(s): I48.91 - Unspecified atrial fibrillation (3) UTI (urinary tract infection) Current Visit: No Status: Acute Assessment and plan: Urine culture negative. Antibiotic has been stopped Qualifiers: Urinary tract infection type: site unspecified Hematuria presence: without hematuria Qualified Code(s): N39.0 - Urinary tract infection, site not specified (4) Acute on chronic respiratory failure Current Visit: Yes Status: Acute Assessment and plan: Probably due to pneumonia. Improved now. Have finished the 5 day antibiotic course. Hold antibiotics for now because patient developed C. difficile colitis. Taper down steroids Qualifiers: Respiratory failure complication: hypoxia Qualified Code(s): J96.21 - Acute and chronic respiratory failure with hypoxia (5) Acute on chronic diastolic (congestive) heart failure Current Visit: No Status: Acute Assessment and plan: Patient has elevated BNP. Chest x-ray also suspected pulmonary edema. After IV Lasix treatment, Volume status appears improved, switched back to by mouth Lasix. (6) COPD (chronic obstructive pulmonary disease) with emphysema Current Visit: No Status: Chronic Assessment and plan: Stable. Scattered wheezing resolved, on bronchodilator and prednisone. Qualifiers: Emphysema type: centrilobular Qualified Code(s): J43.2 - Centrilobular emphysema (7) Chronic kidney disease (CKD) Current Visit: Yes Status: Chronic Assessment and plan: Cr at her baseline. Continue monitor renal function Qualifiers: Chronic kidney disease stage: stage 3 (moderate) Qualified Code(s): N18.3 - Chronic kidney disease, stage 3 (moderate) (8) DVT prophylaxis Current Visit: No Status: Acute Assessment and plan: Patient is on Coumadin (9) Community acquired pneumonia Current Visit: Yes Status: Acute Assessment and plan: Patient has been treated with antibiotic for 5 days. Symptoms improved. DC antibiotics. Qualifiers: Laterality: unspecified laterality Qualified Code(s): J18.9 - Pneumonia, unspecified organism (10) Anxiety Current Visit: Yes Status: Acute Assessment and plan: Resume home anxiety medication as the patient mental status has improved (11) C. difficile colitis Current Visit: Yes Status: Acute Assessment and plan: C. difficile positive with diarrhea. Started Flagyl by mouth. Closely monitor patient. - Time Spent With Patient 25 - 35 minutes - Subjective Interval history: Patient is a 87-year-old female admitted for pneumonia. Past medical history is significant for CHF, COPD, CAD, A. fib. I saw and examined the patient today. She is still weak, improved respiratory distress. No wheezes today. Mental status has improved to baseline. Still have diarrhea, with some nausea. Vitals are stable. We will continue by mouth Flagyl - Constitutional Vitals: Temp Pulse Resp BP Pulse Ox 97.9 F 82 12 120/76 100 04/18/17 15:21 04/18/17 15:21 04/18/17 15:21 04/18/17 15:21 04/18/17 15:21 General appearance: Present: cachectic, mild distress, A&O X 3, answers questions appropriately - Head Head exam: Present: atraumatic, normocephalic - Eye Eye exam: Present: PERRL, conjuntiva pink, sclera anicteric Pupils: Present: PERRL - Neck Neck exam general surgery: Present: supple, trachea midline. Absent: lymphadenopathy - Respiratory Respiratory exam: Present: CTAB. Absent: accessory muscle use, rales, rhonchi, wheezes - Cardiovascular Cardiovascular exam: Present: RRR, +S1, +S2. Absent: diastolic murmur, gallop, rubs, systolic murmur - GI/Abdominal GI/Abdominal exam: Present: normal bowel sounds, soft, no peritoneal signs. Absent: distended, tenderness - Extremities Exam Extremities exam: Present: warm, radial pulses palpable and symmetrical. Absent : calf tenderness, cyanotic, pedal edema - Neurological Exam Neurological exam: Present: CN II-XII intact, oriented X3, no focal deficits. Absent: pronater drift, facial droop, speech deficit - Skin Skin exam: Present: dry, intact Internal Medicine: Result - Labs CBC & Chem 7: 04/18/17 04:52 04/18/17 04:52 Labs: Short CBC 04/18/17 Range/Units 04:52 WBC 20.3 H (4.3-11.1) K/mcL Hgb 9.4 L (11.5-15.4) g/dL Hct 29.7 L (35.3-44.9) % Plt Count 390 (140-400) K/mcL Neutrophils # 18.7 H (1.6-8.9) K/mcL BMP 04/18/17 04:52 Sodium 137 Potassium 4.1 Chloride 99 Carbon Dioxide 28 BUN 41 H Creatinine 1.07 Glucose 103 H Calcium 8.5 L - ABG Interpretation ABG results: PT/INR, D-dimer PT 20.2 Seconds (9.4-12.1) H 04/18/17 04:52 Consult Discharge Plan - Plan Referrals: Connie Grijalva MD [Primary Care Provider] -
[2017-04-18] MEDS ORDERED: *HR* Warfarin 1 MG TABLET PO ONE (18:00)
[2017-04-19] MEDS: Ipratropium/Albuterol Neb 3 ML IH SCH ×7 (00:51→23:10)
[2017-04-19 05:08] LABS: Basophils # 0.1 K/mcL (0.0-0.2); Basophils % 0.4 %; Hematocrit 30.7 % (35.3-44.9); Hemoglobin 9.6 g/dL (11.5-15.4); Immature Granulocytes % 4.7 % (0-4); Lymphocytes # 0.7 K/mcL (0.6-4.6); Lymphocytes % 3.2 %; Mean Corpuscular HGB Conc 31.3 g/dL (31.6-35.5); Mean Corpuscular Hemoglobin 28.5 pg (28.0-33.3); Mean Corpuscular Volume 91.1 fL (83.0-100.0); Mean Platelet Volume 9.1 fL (9.4-12.4); Monocytes # 0.8 K/mcL (0.0-1.3); Monocytes % 3.9 %; Neutrophils # 18.3 K/mcL (1.6-8.9); Platelet Count 384 K/mcL (140-400); Red Blood Count 3.37 M/mcL (3.82-4.97); Red Cell Distribution Width 15.2 % (11.5-14.5); Segmented Neutrophils % 87.8 %
[2017-04-19 05:12] LABS: INR 1.7; Prothrombin Time 18.3 Seconds (9.4-12.1)
[2017-04-19 05:17] LABS: Calcium 8.4 mg/dL (8.6-10.8); Potassium 4.3 mEq/L (3.5-4.5)
[2017-04-19] MEDS: Lactobacillus 1 EACH CAP.SPRINK PO SCH (08:13)
[2017-04-19] MEDS: Metoprolol XL (24 HR) Succ 50 MG TAB.ER.24H PO SCH (08:14)
[2017-04-19] MEDS: *HR* LORazepam 1 MG TABLET PO SCH ×2 (08:14→22:21)
[2017-04-19] MEDS: Furosemide 40 MG TABLET PO SCH ×2 (08:14→17:44)
[2017-04-19] MEDS: Diltiazem CD (24hr) 240 MG CAPSULE PO SCH (08:14)
[2017-04-19] MEDS: Isosorbide MONOnitrate (24 HR) 30 MG TAB.ER.24H PO SCH (08:14)
[2017-04-19] MEDS: metroNIDAZOLE 500 MG TABLET PO SCH ×3 (08:14→22:21)
[2017-04-19] MEDS: *HR* OxyCODONE Immed Rel 5 MG TABLET PO PRN ×2 (09:50→22:21)
[2017-04-19] MEDS: predniSONE 20 MG TABLET PO SCH (09:50)
[2017-04-19] MEDS: Ondansetron ODT 4 MG TAB.RAPDIS PO PRN ×2 (11:54→17:51)
--- NOTE | 2017-04-19 16:55 | Internal Med Progress Note ---
Date of Encounter: 04/19/17 Time of Encounter: 10:00 - Assessment and plan (1) HTN (hypertension), benign Current Visit: No Status: Chronic Assessment and plan: Continue home medications (2) A-fib Current Visit: Yes Status: Chronic Assessment and plan: Heart rate is well controlled. Patient is on Coumadin for anticoagulation. Continue monitor PT/INR and pharmacy dose Coumadin Qualifiers: Atrial fibrillation type: unspecified Qualified Code(s): I48.91 - Unspecified atrial fibrillation (3) UTI (urinary tract infection) Current Visit: No Status: Acute Assessment and plan: Urine culture negative. Antibiotic has been stopped Qualifiers: Urinary tract infection type: site unspecified Hematuria presence: without hematuria Qualified Code(s): N39.0 - Urinary tract infection, site not specified (4) Acute on chronic respiratory failure Current Visit: Yes Status: Acute Assessment and plan: Probably due to pneumonia. Improved now. Have finished the 5 day antibiotic course. Hold antibiotics for now because patient developed C. difficile colitis. Taper down steroids Qualifiers: Respiratory failure complication: hypoxia Qualified Code(s): J96.21 - Acute and chronic respiratory failure with hypoxia (5) Acute on chronic diastolic (congestive) heart failure Current Visit: No Status: Acute Assessment and plan: Patient has elevated BNP. Chest x-ray also suspected pulmonary edema. After IV Lasix treatment, Volume status appears improved, switched back to by mouth Lasix. (6) COPD (chronic obstructive pulmonary disease) with emphysema Current Visit: No Status: Chronic Assessment and plan: Stable. Scattered wheezing resolved, on bronchodilator and prednisone. Qualifiers: Emphysema type: centrilobular Qualified Code(s): J43.2 - Centrilobular emphysema (7) Chronic kidney disease (CKD) Current Visit: Yes Status: Chronic Assessment and plan: Cr at her baseline. Continue monitor renal function Qualifiers: Chronic kidney disease stage: stage 3 (moderate) Qualified Code(s): N18.3 - Chronic kidney disease, stage 3 (moderate) (8) DVT prophylaxis Current Visit: No Status: Acute Assessment and plan: Patient is on Coumadin (9) Community acquired pneumonia Current Visit: Yes Status: Acute Assessment and plan: Patient has been treated with antibiotic for 5 days. Symptoms improved. DC antibiotics. Qualifiers: Laterality: unspecified laterality Qualified Code(s): J18.9 - Pneumonia, unspecified organism (10) Anxiety Current Visit: Yes Status: Acute Assessment and plan: Resume home anxiety medication as the patient mental status has improved (11) C. difficile colitis Current Visit: Yes Status: Acute Assessment and plan: C. difficile positive with diarrhea. Started Flagyl by mouth. Closely monitor patient. (12) Leukocytosis Current Visit: Yes Status: Acute Assessment and plan: Consider reaction to steroid use. Patient has no fever. Taper down steroids now. Follow-up WBC level. Qualifiers: Leukocytosis type: leukemoid reaction Qualified Code(s): D72.823 - Leukemoid reaction - Time Spent With Patient 25 - 35 minutes - Subjective Interval history: Patient is a 87-year-old female admitted for pneumonia. Past medical history is significant for CHF, COPD, CAD, A. fib. I saw and examined the patient today. She is still weak, improved respiratory distress. No wheezes today. Mental status has improved to baseline. Still have diarrhea, with some nausea. Vitals are stable. We will continue by mouth Flagyl for C. difficile colitis - Constitutional Vitals: Temp Pulse Resp BP Pulse Ox 98.1 F 75 20 140/85 96 04/19/17 16:23 04/19/17 16:23 04/19/17 16:23 04/19/17 16:23 04/19/17 16:10 General appearance: Present: cachectic, mild distress, A&O X 3, answers questions appropriately - Head Head exam: Present: atraumatic, normocephalic - Eye Eye exam: Present: PERRL, conjuntiva pink, sclera anicteric Pupils: Present: PERRL - Neck Neck exam general surgery: Present: supple, trachea midline. Absent: lymphadenopathy - Respiratory Respiratory exam: Present: CTAB. Absent: accessory muscle use, rales, rhonchi, wheezes - Cardiovascular Cardiovascular exam: Present: RRR, +S1, +S2. Absent: diastolic murmur, gallop, rubs, systolic murmur - GI/Abdominal GI/Abdominal exam: Present: normal bowel sounds, soft, no peritoneal signs. Absent: distended, tenderness - Extremities Exam Extremities exam: Present: warm, radial pulses palpable and symmetrical. Absent : calf tenderness, cyanotic, pedal edema - Neurological Exam Neurological exam: Present: CN II-XII intact, oriented X3, no focal deficits. Absent: pronater drift, facial droop, speech deficit - Skin Skin exam: Present: dry, intact Internal Medicine: Result - Labs CBC & Chem 7: 04/19/17 04:52 04/19/17 04:52 Labs: Short CBC 04/19/17 Range/Units 04:52 WBC 20.8 H (4.3-11.1) K/mcL Hgb 9.6 L (11.5-15.4) g/dL Hct 30.7 L (35.3-44.9) % Plt Count 384 (140-400) K/mcL Neutrophils # 18.3 H (1.6-8.9) K/mcL BMP 04/19/17 04:52 Sodium 134 L Potassium 4.3 Chloride 96 L Carbon Dioxide 28 BUN 45 H Creatinine 1.21 H Glucose 101 H Calcium 8.4 L - ABG Interpretation ABG results: PT/INR, D-dimer PT 18.3 Seconds (9.4-12.1) H 04/19/17 04:52 Consult Discharge Plan - Plan Referrals: Connie Grijalva MD [Primary Care Provider] -
[2017-04-19] MEDS ORDERED: *HR* Warfarin 2.5 MG TABLET PO ONE (18:00)
[2017-04-20] MEDS: Ipratropium/Albuterol Neb 3 ML IH SCH ×6 (03:45→23:09)
[2017-04-20 06:43] LABS: Basophils # 0.1 K/mcL (0.0-0.2); Basophils % 0.4 %; Eosinophils # 0.1 K/mcL (0.0-0.6); Eosinophils % 0.4 %; Hematocrit 32.6 % (35.3-44.9); Immature Granulocytes % 4.4 % (0-4); Lymphocytes % 5.5 %; Mean Corpuscular HGB Conc 30.7 g/dL (31.6-35.5); Mean Corpuscular Hemoglobin 28.3 pg (28.0-33.3); Mean Corpuscular Volume 92.4 fL (83.0-100.0); Mean Platelet Volume 9.5 fL (9.4-12.4); Monocytes # 1.1 K/mcL (0.0-1.3); Monocytes % 5.7 %; Neutrophils # 15.4 K/mcL (1.6-8.9); Platelet Count 391 K/mcL (140-400); Red Blood Count 3.53 M/mcL (3.82-4.97); Red Cell Distribution Width 15.6 % (11.5-14.5); Segmented Neutrophils % 83.6 %
[2017-04-20 06:52] LABS: INR 1.5
[2017-04-20 06:59] LABS: Calcium 8.6 mg/dL (8.6-10.8); Potassium 4.4 mEq/L (3.5-4.5)
[2017-04-20] MEDS: Isosorbide MONOnitrate (24 HR) 30 MG TAB.ER.24H PO SCH (08:36)
[2017-04-20] MEDS: metroNIDAZOLE 500 MG TABLET PO SCH ×3 (08:36→21:56)
[2017-04-20] MEDS: predniSONE 20 MG TABLET PO SCH (08:37)
[2017-04-20] MEDS: *HR* LORazepam 1 MG TABLET PO SCH ×2 (08:37→21:56)
[2017-04-20] MEDS: Furosemide 40 MG TABLET PO SCH ×2 (08:37→15:54)
[2017-04-20] MEDS: Metoprolol XL (24 HR) Succ 50 MG TAB.ER.24H PO SCH (08:37)
[2017-04-20] MEDS: Lactobacillus 1 EACH CAP.SPRINK PO SCH (08:37)
[2017-04-20] MEDS: Ondansetron ODT 4 MG TAB.RAPDIS PO PRN (08:37)
[2017-04-20] MEDS: Diltiazem CD (24hr) 240 MG CAPSULE PO SCH (08:37)
[2017-04-20] MEDS: *HR* OxyCODONE Immed Rel 5 MG TABLET PO PRN ×2 (11:04→17:52)
--- NOTE | 2017-04-20 13:06 | Internal Med Progress Note ---
Date of Encounter: 04/20/17 Time of Encounter: 10:00 - Assessment and plan (1) HTN (hypertension), benign Current Visit: No Status: Chronic Assessment and plan: Continue home medications (2) A-fib Current Visit: Yes Status: Chronic Assessment and plan: Heart rate is well controlled. Patient is on Coumadin for anticoagulation. Continue monitor PT/INR and pharmacy dose Coumadin Qualifiers: Atrial fibrillation type: unspecified Qualified Code(s): I48.91 - Unspecified atrial fibrillation (3) UTI (urinary tract infection) Current Visit: No Status: Acute Assessment and plan: Urine culture negative. Antibiotic has been stopped Qualifiers: Urinary tract infection type: site unspecified Hematuria presence: without hematuria Qualified Code(s): N39.0 - Urinary tract infection, site not specified (4) Acute on chronic respiratory failure Current Visit: Yes Status: Acute Assessment and plan: Probably due to pneumonia. Improved now. Have finished the 5 day antibiotic course. Hold antibiotics for now because patient developed C. difficile colitis. Taper down steroids Qualifiers: Respiratory failure complication: hypoxia Qualified Code(s): J96.21 - Acute and chronic respiratory failure with hypoxia (5) Acute on chronic diastolic (congestive) heart failure Current Visit: No Status: Acute Assessment and plan: Patient has elevated BNP. Chest x-ray also suspected pulmonary edema. After IV Lasix treatment, Volume status appears improved, switched back to by mouth Lasix. (6) COPD (chronic obstructive pulmonary disease) with emphysema Current Visit: No Status: Chronic Assessment and plan: Stable. Scattered wheezing resolved, on bronchodilator and prednisone. Qualifiers: Emphysema type: centrilobular Qualified Code(s): J43.2 - Centrilobular emphysema (7) Chronic kidney disease (CKD) Current Visit: Yes Status: Chronic Assessment and plan: Cr at her baseline. Continue monitor renal function Qualifiers: Chronic kidney disease stage: stage 3 (moderate) Qualified Code(s): N18.3 - Chronic kidney disease, stage 3 (moderate) (8) DVT prophylaxis Current Visit: No Status: Acute Assessment and plan: Patient is on Coumadin (9) Community acquired pneumonia Current Visit: Yes Status: Acute Assessment and plan: Patient has been treated with antibiotic for 5 days. Symptoms improved. DC antibiotics. Qualifiers: Laterality: unspecified laterality Qualified Code(s): J18.9 - Pneumonia, unspecified organism (10) Anxiety Current Visit: Yes Status: Acute Assessment and plan: Resume home anxiety medication as the patient mental status has improved (11) C. difficile colitis Current Visit: Yes Status: Acute Assessment and plan: C. difficile positive with diarrhea. Started Flagyl by mouth. Closely monitor patient. (12) Leukocytosis Current Visit: Yes Status: Acute Assessment and plan: Consider reaction to steroid use. Patient has no fever. Taper down steroids now. Follow-up WBC level, slightly get down today.. Qualifiers: Leukocytosis type: leukemoid reaction Qualified Code(s): D72.823 - Leukemoid reaction - Time Spent With Patient 25 - 35 minutes - Subjective Interval history: Patient is a 87-year-old female admitted for pneumonia. Past medical history is significant for CHF, COPD, CAD, A. fib. I saw and examined the patient today. She is still weak but better, improved respiratory distress. No wheezes. Mental status has improved to baseline. Still have diarrhea, with two loose stool BMs. With some nausea. Vitals are stable. We will continue by mouth Flagyl for C. difficile colitis. Slow progression will order CT abd to r/o megacolon (less likely as pt has no toxic symptoms) - Constitutional Vitals: Temp Pulse Resp BP Pulse Ox 97.8 F 72 18 120/78 95 04/20/17 11:30 04/20/17 11:30 04/20/17 11:30 04/20/17 11:30 04/20/17 11:30 General appearance: Present: cachectic, mild distress, A&O X 3, answers questions appropriately - Head Head exam: Present: atraumatic, normocephalic - Eye Eye exam: Present: PERRL, conjuntiva pink, sclera anicteric Pupils: Present: PERRL - Neck Neck exam general surgery: Present: supple, trachea midline. Absent: lymphadenopathy - Respiratory Respiratory exam: Present: CTAB. Absent: accessory muscle use, rales, rhonchi, wheezes - Cardiovascular Cardiovascular exam: Present: RRR, +S1, +S2. Absent: diastolic murmur, gallop, rubs, systolic murmur - GI/Abdominal GI/Abdominal exam: Present: normal bowel sounds, soft, tenderness (Mild tenderness on Right side), no peritoneal signs. Absent: distended - Extremities Exam Extremities exam: Present: warm, radial pulses palpable and symmetrical. Absent : calf tenderness, cyanotic, pedal edema - Neurological Exam Neurological exam: Present: CN II-XII intact, oriented X3, no focal deficits. Absent: pronater drift, facial droop, speech deficit - Skin Skin exam: Present: dry, intact Internal Medicine: Result - Labs CBC & Chem 7: 04/20/17 06:08 04/20/17 06:08 Labs: Short CBC 04/20/17 Range/Units 06:08 WBC 18.5 H (4.3-11.1) K/mcL Hgb 10.0 L (11.5-15.4) g/dL Hct 32.6 L (35.3-44.9) % Plt Count 391 (140-400) K/mcL Neutrophils # 15.4 H (1.6-8.9) K/mcL BMP 04/20/17 06:08 Sodium 136 Potassium 4.4 Chloride 97 L Carbon Dioxide 29 BUN 47 H Creatinine 1.18 H Glucose 85 Calcium 8.6 - ABG Interpretation ABG results: PT/INR, D-dimer PT 16.0 Seconds (9.4-12.1) H 04/20/17 06:08 Consult Discharge Plan - Plan Referrals: Connie Grijalva MD [Primary Care Provider] -
[2017-04-20] MEDS ORDERED: *HR* Warfarin 2.5 MG TABLET PO ONE (18:00)
[2017-04-20] MEDS: Morphine Oral CONC 5 MG/0.25 ML ORAL.SYG PO PRN (19:47)
[2017-04-21] MEDS: Ipratropium/Albuterol Neb 3 ML IH SCH ×6 (04:32→23:33)
[2017-04-21] MEDS: Acetaminophen 325 MG TABLET PO PRN (05:24)
[2017-04-21 06:32] LABS: Basophils # 0.1 K/mcL (0.0-0.2); Basophils % 0.3 %; Eosinophils # 0.1 K/mcL (0.0-0.6); Eosinophils % 0.6 %; Hematocrit 33.4 % (35.3-44.9); Hemoglobin 10.6 g/dL (11.5-15.4); Immature Granulocytes % 3.7 % (0-4); Lymphocytes # 1.3 K/mcL (0.6-4.6); Lymphocytes % 7.5 %; Mean Corpuscular HGB Conc 31.7 g/dL (31.6-35.5); Mean Corpuscular Hemoglobin 29.5 pg (28.0-33.3); Mean Platelet Volume 9.6 fL (9.4-12.4); Monocytes # 1.1 K/mcL (0.0-1.3); Monocytes % 6.5 %; Neutrophils # 13.9 K/mcL (1.6-8.9); Platelet Count 375 K/mcL (140-400); Red Blood Count 3.59 M/mcL (3.82-4.97); Red Cell Distribution Width 15.6 % (11.5-14.5); Segmented Neutrophils % 81.4 %
[2017-04-21 06:38] LABS: INR 1.5; Prothrombin Time 16.7 Seconds (9.4-12.1)
[2017-04-21 06:50] LABS: Calcium 8.7 mg/dL (8.6-10.8); Potassium 4.4 mEq/L (3.5-4.5)
[2017-04-21] MEDS: Isosorbide MONOnitrate (24 HR) 30 MG TAB.ER.24H PO SCH (09:20)
[2017-04-21] MEDS: Diltiazem CD (24hr) 240 MG CAPSULE PO SCH (09:20)
[2017-04-21] MEDS: metroNIDAZOLE 500 MG TABLET PO SCH ×2 (09:20→14:44)
[2017-04-21] MEDS: *HR* LORazepam 1 MG TABLET PO SCH ×2 (09:21→22:17)
[2017-04-21] MEDS: Metoprolol XL (24 HR) Succ 50 MG TAB.ER.24H PO SCH (09:21)
[2017-04-21] MEDS: Furosemide 40 MG TABLET PO SCH ×2 (09:21→17:34)
[2017-04-21] MEDS: Lactobacillus 1 EACH CAP.SPRINK PO SCH (09:21)
[2017-04-21] MEDS: *HR* OxyCODONE Immed Rel 5 MG TABLET PO PRN ×3 (09:29→22:17)
--- NOTE | 2017-04-21 12:28 | Internal Med Progress Note ---
Date of Encounter: 04/21/17 Time of Encounter: 10:00 - Assessment and plan (1) HTN (hypertension), benign Current Visit: No Status: Chronic Assessment and plan: Continue home medications (2) A-fib Current Visit: Yes Status: Chronic Assessment and plan: Heart rate is well controlled. Patient is on Coumadin for anticoagulation. Continue monitor PT/INR and pharmacy dose Coumadin Qualifiers: Atrial fibrillation type: unspecified Qualified Code(s): I48.91 - Unspecified atrial fibrillation (3) UTI (urinary tract infection) Current Visit: No Status: Acute Assessment and plan: Urine culture negative. Antibiotic has been stopped Qualifiers: Urinary tract infection type: site unspecified Hematuria presence: without hematuria Qualified Code(s): N39.0 - Urinary tract infection, site not specified (4) Acute on chronic respiratory failure Current Visit: Yes Status: Acute Assessment and plan: Probably due to pneumonia. Improved now. Have finished the 5 day antibiotic course. Hold antibiotics for now because patient developed C. difficile colitis. D/C steroids today. Qualifiers: Respiratory failure complication: hypoxia Qualified Code(s): J96.21 - Acute and chronic respiratory failure with hypoxia (5) Acute on chronic diastolic (congestive) heart failure Current Visit: No Status: Acute Assessment and plan: Patient has elevated BNP. Chest x-ray also suspected pulmonary edema. After IV Lasix treatment, Volume status appears improved, switched back to by mouth Lasix. (6) COPD (chronic obstructive pulmonary disease) with emphysema Current Visit: No Status: Chronic Assessment and plan: Stable. Scattered wheezing resolved, on bronchodilator. D/C prednisone today. Qualifiers: Emphysema type: centrilobular Qualified Code(s): J43.2 - Centrilobular emphysema (7) Chronic kidney disease (CKD) Current Visit: Yes Status: Chronic Assessment and plan: Cr at her baseline. Continue monitor renal function Qualifiers: Chronic kidney disease stage: stage 3 (moderate) Qualified Code(s): N18.3 - Chronic kidney disease, stage 3 (moderate) (8) DVT prophylaxis Current Visit: No Status: Acute Assessment and plan: Patient is on Coumadin (9) Community acquired pneumonia Current Visit: Yes Status: Acute Assessment and plan: Patient has been treated with antibiotic for 5 days. Symptoms improved. DC antibiotics. Qualifiers: Laterality: unspecified laterality Qualified Code(s): J18.9 - Pneumonia, unspecified organism (10) Anxiety Current Visit: Yes Status: Acute Assessment and plan: Resume home anxiety medication as the patient mental status has improved (11) C. difficile colitis Current Visit: Yes Status: Acute Assessment and plan: C. difficile positive with diarrhea. Started Flagyl by mouth. Closely monitor patient. (12) Leukocytosis Current Visit: Yes Status: Acute Assessment and plan: Consider reaction to steroid use, but is also possibly due to C. difficile. Patient has no fever. D/C steroids today. Follow-up WBC level. Qualifiers: Leukocytosis type: leukemoid reaction Qualified Code(s): D72.823 - Leukemoid reaction - Time Spent With Patient 25 - 35 minutes - Subjective Interval history: Patient is a 87-year-old female admitted for pneumonia. Past medical history is significant for CHF, COPD, CAD, A. fib. I saw and examined the patient today. She is still weak, improved respiratory distress. No wheezes. Mental status has improved to baseline. Still have diarrhea, with three loose stool BMs yesterday. CT abd yesterday not support megacolon. Patient does still have leukocytosis but WBC level get down. We will continue by mouth Flagyl for C. difficile colitis to finish 14 day course. - Constitutional Vitals: Temp Pulse Resp BP Pulse Ox 97.8 F 58 18 139/103 96 04/21/17 07:03 04/21/17 07:03 04/21/17 11:23 04/21/17 07:03 04/21/17 11:23 General appearance: Present: cachectic, mild distress, A&O X 3, answers questions appropriately - Head Head exam: Present: atraumatic, normocephalic - Eye Eye exam: Present: PERRL, conjuntiva pink, sclera anicteric Pupils: Present: PERRL - Neck Neck exam general surgery: Present: supple, trachea midline. Absent: lymphadenopathy - Respiratory Respiratory exam: Present: CTAB. Absent: accessory muscle use, rales, rhonchi, wheezes - Cardiovascular Cardiovascular exam: Present: RRR, +S1, +S2. Absent: diastolic murmur, gallop, rubs, systolic murmur - GI/Abdominal GI/Abdominal exam: Present: normal bowel sounds, soft, no peritoneal signs. Absent: distended, tenderness - Extremities Exam Extremities exam: Present: warm, radial pulses palpable and symmetrical. Absent : calf tenderness, cyanotic, pedal edema - Neurological Exam Neurological exam: Present: CN II-XII intact, oriented X3, no focal deficits. Absent: pronater drift, facial droop, speech deficit - Skin Skin exam: Present: dry, intact Internal Medicine: Result - Labs CBC & Chem 7: 04/21/17 05:49 04/21/17 05:49 Labs: Short CBC 04/21/17 Range/Units 05:49 WBC 17.1 H (4.3-11.1) K/mcL Hgb 10.6 L (11.5-15.4) g/dL Hct 33.4 L (35.3-44.9) % Plt Count 375 (140-400) K/mcL Neutrophils # 13.9 H (1.6-8.9) K/mcL BMP 04/21/17 05:49 Sodium 138 Potassium 4.4 Chloride 99 Carbon Dioxide 30 H BUN 51 H Creatinine 1.30 H Glucose 81 Calcium 8.7 - ABG Interpretation ABG results: PT/INR, D-dimer PT 16.7 Seconds (9.4-12.1) H 04/21/17 05:49 - Impressions Impressions Abdomen/Pelvis CT 04/20/17 13:00 IMPRESSION: No acute intra-abdominal or intrapelvic abnormality on noncontrast exam. Diverticulosis without evidence of diverticulitis on limited noncontrast exam. Aneurysmal dilatation ascending aorta is again seen measuring 4.6 cm, overall similar in appearance. D/ / Rosmery Shelley MD / Rosmery Shelley MD Interpreting Provider: Rosmery Shelley MD Consult Discharge Plan - Plan Referrals: Connie Grijalva MD [Primary Care Provider] -
[2017-04-21] MEDS ORDERED: Vancomycin Oral Soln 250 MG/2.5 ML UDC PO SCH (17:00)
[2017-04-21] MEDS: VANCOMYCIN 250 MG/5 ML PO SCH ×2 (17:34→23:09)
[2017-04-21] MEDS ORDERED: *HR* Warfarin 2.5 MG TABLET PO ONE (18:00)
[2017-04-21] MEDS: Ondansetron ODT 4 MG TAB.RAPDIS PO PRN (22:16)
[2017-04-21] MEDS: Morphine Oral CONC 5 MG/0.25 ML ORAL.SYG PO PRN (23:16)
[2017-04-21] MEDS: MetroNIDAZOLE 500 MG/100 ML 500 MG/100 ML BAG IVPB SCH (23:17)
[2017-04-22 04:53] LABS: Basophils % 0.2 %; Eosinophils # 0.1 K/mcL (0.0-0.6); Eosinophils % 0.8 %; Hematocrit 31.6 % (35.3-44.9); Hemoglobin 9.9 g/dL (11.5-15.4); Immature Granulocytes % 2.6 % (0-4); Lymphocytes # 1.2 K/mcL (0.6-4.6); Lymphocytes % 6.7 %; Mean Corpuscular HGB Conc 31.3 g/dL (31.6-35.5); Mean Corpuscular Volume 92.7 fL (83.0-100.0); Mean Platelet Volume 9.7 fL (9.4-12.4); Monocytes # 1.2 K/mcL (0.0-1.3); Monocytes % 7.1 %; Neutrophils # 14.5 K/mcL (1.6-8.9); Platelet Count 362 K/mcL (140-400); Red Blood Count 3.41 M/mcL (3.82-4.97); Red Cell Distribution Width 15.9 % (11.5-14.5); Segmented Neutrophils % 82.6 %
[2017-04-22 04:57] LABS: INR 1.8
[2017-04-22] MEDS: Ipratropium/Albuterol Neb 3 ML IH SCH ×3 (04:57→11:51)
[2017-04-22 05:05] LABS: Calcium 8.4 mg/dL (8.6-10.8); Potassium 3.8 mEq/L (3.5-4.5)
[2017-04-22] MEDS: MetroNIDAZOLE 500 MG/100 ML 500 MG/100 ML BAG IVPB SCH ×2 (08:59→18:22)
[2017-04-22] MEDS: Morphine Oral CONC 5 MG/0.25 ML ORAL.SYG PO PRN ×3 (08:59→18:17)
[2017-04-22] MEDS: Furosemide 40 MG TABLET PO SCH ×2 (09:00→18:19)
[2017-04-22] MEDS: Lactobacillus 1 EACH CAP.SPRINK PO SCH (09:00)
[2017-04-22] MEDS: Isosorbide MONOnitrate (24 HR) 30 MG TAB.ER.24H PO SCH (09:00)
[2017-04-22] MEDS: Diltiazem CD (24hr) 240 MG CAPSULE PO SCH (09:00)
[2017-04-22] MEDS: 0.9 % Sodium Chloride 1,000 ML IVC SCH (09:00)
[2017-04-22] MEDS: *HR* LORazepam 1 MG TABLET PO SCH ×2 (09:00→20:22)
[2017-04-22] MEDS: Metoprolol XL (24 HR) Succ 50 MG TAB.ER.24H PO SCH (09:00)
[2017-04-22] MEDS: VANCOMYCIN 250 MG/5 ML PO SCH (10:47)
[2017-04-22] MEDS: Vancomycin Oral Soln 250 MG/5 ML UDC PO SCH ×3 (12:53→22:25)
--- NOTE | 2017-04-22 13:52 | Internal Med Progress Note ---
Date of Encounter: 04/22/17 Time of Encounter: 09:00 - Assessment and plan (1) HTN (hypertension), benign Current Visit: No Status: Chronic Assessment and plan: Continue home medications (2) A-fib Current Visit: Yes Status: Chronic Assessment and plan: Heart rate is well controlled. Patient is on Coumadin for anticoagulation. Continue monitor PT/INR and pharmacy dose Coumadin Qualifiers: Atrial fibrillation type: unspecified Qualified Code(s): I48.91 - Unspecified atrial fibrillation (3) UTI (urinary tract infection) Current Visit: No Status: Acute Assessment and plan: Urine culture negative. Antibiotic has been stopped Qualifiers: Urinary tract infection type: site unspecified Hematuria presence: without hematuria Qualified Code(s): N39.0 - Urinary tract infection, site not specified (4) Acute on chronic respiratory failure Current Visit: Yes Status: Acute Assessment and plan: Probably due to pneumonia. Improved now. Have finished the 5 day antibiotic course. Hold antibiotics for now because patient developed C. difficile colitis. Qualifiers: Respiratory failure complication: hypoxia Qualified Code(s): J96.21 - Acute and chronic respiratory failure with hypoxia (5) Acute on chronic diastolic (congestive) heart failure Current Visit: No Status: Acute Assessment and plan: Patient has elevated BNP. Chest x-ray also suspected pulmonary edema. After IV Lasix treatment, Volume status appears improved, switched back to by mouth Lasix. (6) COPD (chronic obstructive pulmonary disease) with emphysema Current Visit: No Status: Chronic Assessment and plan: Stable. Scattered wheezing resolved, on bronchodilator PRN only. Qualifiers: Emphysema type: centrilobular Qualified Code(s): J43.2 - Centrilobular emphysema (7) Chronic kidney disease (CKD) Current Visit: Yes Status: Chronic Assessment and plan: Mild elevation of Cr, place low rate IVF as pt has diarrhea. Continue monitor renal function Qualifiers: Chronic kidney disease stage: stage 3 (moderate) Qualified Code(s): N18.3 - Chronic kidney disease, stage 3 (moderate) (8) DVT prophylaxis Current Visit: No Status: Acute Assessment and plan: Patient is on Coumadin (9) Community acquired pneumonia Current Visit: Yes Status: Acute Assessment and plan: Patient has been treated with antibiotic for 5 days. Symptoms improved. DC antibiotics. Qualifiers: Laterality: unspecified laterality Qualified Code(s): J18.9 - Pneumonia, unspecified organism (10) Anxiety Current Visit: Yes Status: Acute Assessment and plan: Resume home anxiety medication as the patient mental status has improved (11) C. difficile colitis Current Visit: Yes Status: Acute Assessment and plan: C. difficile positive with diarrhea. Diarrhea persist after 5 days of po flagyl , switch to iv flagyl plus po vanco now. Closely monitor pt. Cont Lactobacillus. (12) Leukocytosis Current Visit: Yes Status: Acute Assessment and plan: Consider reaction to steroid use, but is also possibly due to C. difficile. Patient has no fever. D/C steroids on 04/20. Follow-up WBC level. Qualifiers: Leukocytosis type: leukemoid reaction Qualified Code(s): D72.823 - Leukemoid reaction - Time Spent With Patient 25 - 35 minutes - Subjective Interval history: Patient is a 87-year-old female admitted for pneumonia. Past medical history is significant for CHF, COPD, CAD, A. fib. I saw and examined the patient today. She is still weak, improved respiratory distress. No wheezes. Mental status has improved to baseline. Still have diarrhea, with three loose stool BMs yesterday. WBC still high even that steroid has been discontinued. Will switch po flagyl to iv flagyl and add po vanco 125mg qid for C diff. Pt has mild elevation of Cr, considering she has diarrhea, will give careful hydration with low rate IVF. - Constitutional Vitals: Temp Pulse Resp BP Pulse Ox 97.8 F 89 18 153/78 100 04/22/17 07:58 04/22/17 07:58 04/22/17 11:52 04/22/17 07:58 04/22/17 11:52 General appearance: Present: cachectic, mild distress, A&O X 3, answers questions appropriately - Head Head exam: Present: atraumatic, normocephalic - Eye Eye exam: Present: PERRL, conjuntiva pink, sclera anicteric Pupils: Present: PERRL - Neck Neck exam general surgery: Present: supple, trachea midline. Absent: lymphadenopathy - Respiratory Respiratory exam: Present: CTAB. Absent: accessory muscle use, rales, rhonchi, wheezes - Cardiovascular Cardiovascular exam: Present: RRR, +S1, +S2. Absent: diastolic murmur, gallop, rubs, systolic murmur - GI/Abdominal GI/Abdominal exam: Present: normal bowel sounds, soft, no peritoneal signs. Absent: distended, tenderness - Extremities Exam Extremities exam: Present: warm, radial pulses palpable and symmetrical. Absent : calf tenderness, cyanotic, pedal edema - Neurological Exam Neurological exam: Present: CN II-XII intact, oriented X3, no focal deficits. Absent: pronater drift, facial droop, speech deficit - Skin Skin exam: Present: dry, intact Internal Medicine: Result - Labs CBC & Chem 7: 04/22/17 04:01 04/22/17 04:01 Labs: Short CBC 04/22/17 Range/Units 04:01 WBC 17.5 H (4.3-11.1) K/mcL Hgb 9.9 L (11.5-15.4) g/dL Hct 31.6 L (35.3-44.9) % Plt Count 362 (140-400) K/mcL Neutrophils # 14.5 H (1.6-8.9) K/mcL BMP 04/22/17 04:01 Sodium 135 L Potassium 3.8 Chloride 99 Carbon Dioxide 29 BUN 48 H Creatinine 1.38 H Glucose 92 Calcium 8.4 L - ABG Interpretation ABG results: PT/INR, D-dimer PT 20.0 Seconds (9.4-12.1) H 04/22/17 04:01 Consult Discharge Plan - Plan Referrals: Connie Grijalva MD [Primary Care Provider] -
[2017-04-22] MEDS ORDERED: *HR* Warfarin 2.5 MG TABLET PO ONE (18:00)
[2017-04-22] MEDS: Ondansetron ODT 4 MG TAB.RAPDIS PO PRN (18:56)
[2017-04-22] MEDS: *HR* OxyCODONE Immed Rel 5 MG TABLET PO PRN (20:21)
[2017-04-23] MEDS: MetroNIDAZOLE 500 MG/100 ML 500 MG/100 ML BAG IVPB SCH ×3 (01:08→18:14)
[2017-04-23] MEDS: Ondansetron ODT 4 MG TAB.RAPDIS PO PRN ×2 (04:23→20:04)
[2017-04-23] MEDS: *HR* OxyCODONE Immed Rel 5 MG TABLET PO PRN ×3 (04:23→18:14)
[2017-04-23 04:44] LABS: Basophils # 0.1 K/mcL (0.0-0.2); Basophils % 0.2 %; Eosinophils # 0.2 K/mcL (0.0-0.6); Hematocrit 35.8 % (35.3-44.9); Hemoglobin 10.9 g/dL (11.5-15.4); Immature Granulocytes % 2.1 % (0-4); Lymphocytes # 1.2 K/mcL (0.6-4.6); Lymphocytes % 5.1 %; Mean Corpuscular HGB Conc 30.4 g/dL (31.6-35.5); Mean Corpuscular Hemoglobin 28.3 pg (28.0-33.3); Mean Platelet Volume 9.6 fL (9.4-12.4); Monocytes # 1.7 K/mcL (0.0-1.3); Monocytes % 7.3 %; Neutrophils # 19.2 K/mcL (1.6-8.9); Platelet Count 424 K/mcL (140-400); Red Blood Count 3.85 M/mcL (3.82-4.97); Red Cell Distribution Width 16.4 % (11.5-14.5); Segmented Neutrophils % 84.3 %
[2017-04-23 04:48] LABS: INR 1.8
[2017-04-23 05:08] LABS: Calcium 8.9 mg/dL (8.6-10.8); Potassium 4.7 mEq/L (3.5-4.5)
[2017-04-23] MEDS: Metoprolol XL (24 HR) Succ 50 MG TAB.ER.24H PO SCH (10:41)
[2017-04-23] MEDS: Furosemide 40 MG TABLET PO SCH ×2 (10:42→18:14)
[2017-04-23] MEDS: Isosorbide MONOnitrate (24 HR) 30 MG TAB.ER.24H PO SCH (10:42)
[2017-04-23] MEDS: *HR* LORazepam 1 MG TABLET PO SCH ×2 (10:42→20:05)
[2017-04-23] MEDS: Lactobacillus 1 EACH CAP.SPRINK PO SCH (10:42)
[2017-04-23] MEDS: Diltiazem CD (24hr) 240 MG CAPSULE PO SCH (10:42)
[2017-04-23] MEDS: Vancomycin Oral Soln 250 MG/5 ML UDC PO SCH ×4 (10:43→20:05)
[2017-04-23] MEDS: 0.9 % Sodium Chloride 1,000 ML IVC SCH (13:04)
[2017-04-23] MEDS: Morphine Oral CONC 5 MG/0.25 ML ORAL.SYG PO PRN (14:31)
--- NOTE | 2017-04-23 15:02 | Gastroenterology Consult Note ---
<Dajuan Singh - Last Filed: 04/23/17 15:00> Date of Encounter: 04/23/17 Time of Encounter: 13:30 - Assessment and plan (1) C. difficile colitis Current Visit: Yes Status: Acute Assessment and plan: Pt was started on Flagyl and continued to havd diarrhea after 5 days of treatment. She was changed to PO Vanco yesterday and she reports no further episodes of diarrhea. Continue PO Vanco and probiotics. (2) A-fib Current Visit: Yes Status: Chronic Qualifiers: Atrial fibrillation type: unspecified Qualified Code(s): I48.91 - Unspecified atrial fibrillation (3) Chronic kidney disease (CKD) Current Visit: Yes Status: Chronic Qualifiers: Chronic kidney disease stage: stage 3 (moderate) Qualified Code(s): N18.3 - Chronic kidney disease, stage 3 (moderate) (4) Community acquired pneumonia Current Visit: Yes Status: Acute Assessment and plan: Management per primary team. Qualifiers: Laterality: unspecified laterality Qualified Code(s): J18.9 - Pneumonia, unspecified organism - Time Spent With Patient Total time spent is greater than 50% in coordination of care (as documented) at patient's floor/unit and/or counseling patient: GI History of Present Illness - Data of Consult Patient: new to practice Consult date: 04/23/17 Requesting Physician: Lizandro Hernandez MD - Consult Narrative Reason for consult: C diff History of present illness: Ms. Carrington is a 87 year old female with PMHx of aortic aneurysm, arthritis, A. fib, CHF, oxygen dependent COPD, CAD, DVT, GERD, hyperlipidemia, HTN, CKD stage IV. The patient is in hospice care for multiple comorbidities including end- stage heart failure and COPD. She was brought to the ED for increasing shortness of breath, generalized weakness. Patient began having diarrhea and was C. difficile positive on 04/16. She was started on PO Flagyl. Diarrhea continued to persist after 5 days of oral Flagyl and was changed to PO Vanco yesterday. She is taking probiotic as well. Pt states she has not had any diarrhea today. Procedures: None NSAIDs: None Anticoagulation: Coumadin Past Med Surg Social Fam HX - Past Medical History Medical history: aortic aneurysm, arthritis, atrial fibrillation, CHF, COPD, coronary artery disease, DVT, GERD, hyperlipidemia, hypertension, osteoporosis, RA, renal disease, thyroid disease, venous stasis, valvular heart disease, other Psychiatric history: anxiety - Past Surgical History Surgical History: no surgical history, other - Social History Smoking Status: Never smoker Smokeless Tobacco Status: No Alcohol use: none Drug use: none - Family History Father Family Member Ethnicity: Non- Living Status: Hx Family Cardiac Disorders: Yes Hx Family Respiratory Disorders: No Hx Family Cancer: No Hx Family GI Disorders: No Hx Family Endocrine Disorder: No Hx Family Neuromuscular Disorders: No Hx Family Neurologic Disorders: No Hx Family HEENT Disorders: No Hx Family Autoimmune Disorders: No - Gastrointestinal Gastrointestinal: Present: as per HPI - Constitutional Constitutional: as per HPI - EENT Eyes: as per HPI Ears: Present: as per HPI Nose, mouth and throat: Present: as per HPI - Cardiovascular Cardiovascular ROS: Present: as per HPI - Respiratory Respiratory IM: Present: as per HPI - Genitourinary Genitourinary: Absent: change in color, Urinary frequency - Neurological ROS Neurological GI: Present: as per HPI - Hematologic/Lymphatic Hematologic/Lymphatic pediatric: Present: as per HPI - Musculoskeletal Musculoskeletal ROS GI: Present: as per HPI - Integumentary Integumentary GI: Present: as per HPI - Psychiatric ROS Psychiatric GI: Present: as per HPI - Endocrine Endocrine IM: Present: as per HPI - Constitutional Vitals: Temp Pulse Resp BP Pulse Ox 98.3 F 95 16 106/70 96 04/23/17 11:05 04/23/17 11:05 04/23/17 11:05 04/23/17 11:05 04/23/17 11:05 General appearance: Present: cooperative, A&O X 3, no acute distress, answers questions appropriately - Head Head exam: Present: atraumatic, normocephalic - Eye Eye exam: Present: normal appearance, sclera anicteric - ENT ENT exam: Present: mucous membranes dry - Neck Neck exam general surgery: Present: normal inspection, trachea midline - Respiratory Respiratory exam: Present: decreased breath sounds, CTAB - Cardiovascular Cardiovascular exam: Present: RRR, +S1, +S2 - GI/Abdominal GI/Abdominal exam: Present: soft, no peritoneal signs. Absent: distended, firm , guarding, tenderness - Rectal Rectal exam: Present: deferred - Extremities Exam Extremities exam: Present: warm - Neurological Exam Neurological exam: Present: no focal deficits - Psychiatric Psychiatric exam: Present: normal affect, normal mood - Skin Skin exam: Present: dry, intact, normal color, warm Results - Labs CBC & Chem 7: 04/23/17 04:18 04/23/17 04:18 Labs: Last Result Calcium 8.9 mg/dL (8.6-10.8) 04/23/17 04:18 Troponin I 0.02 ng/mL (0-0.03) 04/13/17 07:12 Entire Visit Hgb 10.9 g/dL (11.5-15.4) L 04/23/17 04:18 Hct 35.8 % (35.3-44.9) 04/23/17 04:18 PT 20.0 Seconds (9.4-12.1) H 04/23/17 04:18 Total Bilirubin 1.6 mg/dL (0.2-1.2) H 04/12/17 19:37 AST 10 Units/L (5-34) 04/12/17 19:37 ALT 6 Units/L (0-55) 04/12/17 19:37 - ABG ABG results: PT/INR, D-dimer PT 20.0 Seconds (9.4-12.1) H 04/23/17 04:18 - Impressions Impressions Abdomen/Pelvis CT 04/23/17 10:00 IMPRESSION: 1. Fluid throughout the colon compatible with diarrhea. No definite colonic wall thickening demonstrated 2. Colonic diverticulosis with no evidence of diverticulitis 3. Slightly nodular contour of the liver may indicate cirrhosis. However, there are no findings of portal hypertension 4. Adrenal hypertrophy 5. Cardiomegaly with chronic changes in the lung bases 6. Fat containing umbilical hernia D/ / Alin Santiago MD / Alin Santiago MD Interpreting Provider: Alin Santiago MD Consult Discharge Plan - Plan Referrals: Connie Grijalva MD [Primary Care Provider] - <JessicaLuly - Last Filed: 04/23/17 19:03> Date of Encounter: 04/23/17 Time of Encounter: 18:30 - Time Spent With Patient Total time spent is greater than 50% in coordination of care (as documented) at patient's floor/unit and/or counseling patient: GI History of Present Illness - Data of Consult Requesting Physician: Lizandro Hernandez MD - Consult Narrative History of present illness: Ms. Carrington is a 87 year old female - Constitutional Vitals: Temp Pulse Resp BP Pulse Ox 99.4 F 64 12 94/63 95 04/23/17 15:28 04/23/17 15:28 04/23/17 15:28 04/23/17 15:28 04/23/17 15:28 Results - Labs CBC & Chem 7: 04/23/17 04:18 04/23/17 04:18 Labs: Last Result Calcium 8.9 mg/dL (8.6-10.8) 04/23/17 04:18 Troponin I 0.02 ng/mL (0-0.03) 04/13/17 07:12 Entire Visit Hgb 10.9 g/dL (11.5-15.4) L 04/23/17 04:18 Hct 35.8 % (35.3-44.9) 04/23/17 04:18 PT 20.0 Seconds (9.4-12.1) H 04/23/17 04:18 Total Bilirubin 1.6 mg/dL (0.2-1.2) H 04/12/17 19:37 AST 10 Units/L (5-34) 04/12/17 19:37 ALT 6 Units/L (0-55) 04/12/17 19:37 - ABG ABG results: PT/INR, D-dimer PT 20.0 Seconds (9.4-12.1) H 04/23/17 04:18 - Impressions Impressions Abdomen/Pelvis CT 04/23/17 10:00 IMPRESSION: 1. Fluid throughout the colon compatible with diarrhea. No definite colonic wall thickening demonstrated 2. Colonic diverticulosis with no evidence of diverticulitis 3. Slightly nodular contour of the liver may indicate cirrhosis. However, there are no findings of portal hypertension 4. Adrenal hypertrophy 5. Cardiomegaly with chronic changes in the lung bases 6. Fat containing umbilical hernia D/ / Alin Santiago MD / Alin Santiago MD Interpreting Provider: Alin Santiago MD - Attending Attestation I examined this patient and my medical decision-making was reviewed with the Resident Physician. I agree with the documented findings, disposition and treatment plan as described except to the extent set forth below.
--- NOTE | 2017-04-23 16:36 | Internal Med Progress Note ---
Date of Encounter: 04/23/17 Time of Encounter: 10:00 - Assessment and plan (1) HTN (hypertension), benign Current Visit: No Status: Chronic Assessment and plan: Continue home medications (2) A-fib Current Visit: Yes Status: Chronic Assessment and plan: Heart rate is well controlled. Patient is on Coumadin for anticoagulation. Continue monitor PT/INR and pharmacy dose Coumadin Qualifiers: Atrial fibrillation type: unspecified Qualified Code(s): I48.91 - Unspecified atrial fibrillation (3) UTI (urinary tract infection) Current Visit: No Status: Acute Assessment and plan: Urine culture negative. Antibiotic has been stopped Qualifiers: Urinary tract infection type: site unspecified Hematuria presence: without hematuria Qualified Code(s): N39.0 - Urinary tract infection, site not specified (4) Acute on chronic respiratory failure Current Visit: Yes Status: Acute Assessment and plan: Probably due to pneumonia. Improved now. Have finished the 5 day antibiotic course. Hold antibiotics for now because patient developed C. difficile colitis. Qualifiers: Respiratory failure complication: hypoxia Qualified Code(s): J96.21 - Acute and chronic respiratory failure with hypoxia (5) Acute on chronic diastolic (congestive) heart failure Current Visit: No Status: Acute Assessment and plan: Patient has elevated BNP. Chest x-ray also suspected pulmonary edema. After IV Lasix treatment, Volume status appears improved, switched back to by mouth Lasix. (6) COPD (chronic obstructive pulmonary disease) with emphysema Current Visit: No Status: Chronic Assessment and plan: Stable. Scattered wheezing resolved, on bronchodilator PRN only. Qualifiers: Emphysema type: centrilobular Qualified Code(s): J43.2 - Centrilobular emphysema (7) Chronic kidney disease (CKD) Current Visit: Yes Status: Chronic Assessment and plan: Mild elevation of Cr, place low rate IVF as pt has diarrhea. Continue monitor renal function Qualifiers: Chronic kidney disease stage: stage 3 (moderate) Qualified Code(s): N18.3 - Chronic kidney disease, stage 3 (moderate) (8) DVT prophylaxis Current Visit: No Status: Acute Assessment and plan: Patient is on Coumadin (9) Community acquired pneumonia Current Visit: Yes Status: Resolved Assessment and plan: Patient has been treated with antibiotic for 5 days. Symptoms improved. DC antibiotics. Qualifiers: Laterality: unspecified laterality Qualified Code(s): J18.9 - Pneumonia, unspecified organism (10) Anxiety Current Visit: Yes Status: Acute Assessment and plan: Resume home anxiety medication as the patient mental status has improved (11) C. difficile colitis Current Visit: Yes Status: Acute Assessment and plan: C. difficile positive with diarrhea. Diarrhea persist after 5 days of po flagyl , switch to iv flagyl plus po vanco now. Closely monitor pt. Cont Lactobacillus. The WBC is still high, will continue close monitor patient and counsulted GI. CT abdominal today shows no signs of megacolon (12) Leukocytosis Current Visit: Yes Status: Acute Assessment and plan: Most likely due to C. difficile. Patient has no fever. D/C steroids on 04/20. Follow-up WBC level. Qualifiers: Leukocytosis type: leukemoid reaction Qualified Code(s): D72.823 - Leukemoid reaction - Time Spent With Patient 25 - 35 minutes - Subjective Interval history: Patient is a 87-year-old female admitted for pneumonia. Past medical history is significant for CHF, COPD, CAD, A. fib. I saw and examined the patient today. She is still weak, improved respiratory distress. No wheezes. Mental status has improved to baseline. No diarrhea today. WBC still high even that steroid has been discontinued. On iv flagyl and po vanco for C Diff now, CT abd shows no signs of colon wall inflammations. Pt has mild elevation of Cr, considering she has diarrhea, will give careful hydration with low rate IVF. GI consult appreciated. - Constitutional Vitals: Temp Pulse Resp BP Pulse Ox 99.4 F 64 12 94/63 95 04/23/17 15:28 04/23/17 15:28 04/23/17 15:28 04/23/17 15:28 04/23/17 15:28 General appearance: Present: cachectic, mild distress, A&O X 3, answers questions appropriately - Head Head exam: Present: atraumatic, normocephalic - Eye Eye exam: Present: PERRL, conjuntiva pink, sclera anicteric Pupils: Present: PERRL - Neck Neck exam general surgery: Present: supple, trachea midline. Absent: lymphadenopathy - Respiratory Respiratory exam: Present: CTAB. Absent: accessory muscle use, rales, rhonchi, wheezes - Cardiovascular Cardiovascular exam: Present: RRR, +S1, +S2. Absent: diastolic murmur, gallop, rubs, systolic murmur - GI/Abdominal GI/Abdominal exam: Present: normal bowel sounds, soft, tenderness (Mild abdominal tenderness), no peritoneal signs. Absent: distended - Extremities Exam Extremities exam: Present: warm, radial pulses palpable and symmetrical. Absent : calf tenderness, cyanotic, pedal edema - Neurological Exam Neurological exam: Present: CN II-XII intact, oriented X3, no focal deficits. Absent: pronater drift, facial droop, speech deficit - Skin Skin exam: Present: dry, intact Internal Medicine: Result - Labs CBC & Chem 7: 04/23/17 04:18 04/23/17 04:18 Labs: Short CBC 04/23/17 Range/Units 04:18 WBC 22.8 H (4.3-11.1) K/mcL Hgb 10.9 L (11.5-15.4) g/dL Hct 35.8 (35.3-44.9) % Plt Count 424 H (140-400) K/mcL Neutrophils # 19.2 H (1.6-8.9) K/mcL BMP 04/23/17 04:18 Sodium 138 Potassium 4.7 H Chloride 100 Carbon Dioxide 29 BUN 42 H Creatinine 1.37 H Glucose 98 Calcium 8.9 - ABG Interpretation ABG results: PT/INR, D-dimer PT 20.0 Seconds (9.4-12.1) H 04/23/17 04:18 - Impressions Impressions Abdomen/Pelvis CT 04/23/17 10:00 IMPRESSION: 1. Fluid throughout the colon compatible with diarrhea. No definite colonic wall thickening demonstrated 2. Colonic diverticulosis with no evidence of diverticulitis 3. Slightly nodular contour of the liver may indicate cirrhosis. However, there are no findings of portal hypertension 4. Adrenal hypertrophy 5. Cardiomegaly with chronic changes in the lung bases 6. Fat containing umbilical hernia D/ / Alin Santiago MD / Alin Santiago MD Interpreting Provider: Alin Santiago MD - VTE Documentation of Mechanical Device: Intermittent pneumatic compression device Consult Discharge Plan - Plan Referrals: Connie Grijalva MD [Primary Care Provider] -
[2017-04-23] MEDS ORDERED: *HR* Warfarin 3 MG TABLET PO ONE (18:00)
[2017-04-24] MEDS: MetroNIDAZOLE 500 MG/100 ML 500 MG/100 ML BAG IVPB SCH ×2 (00:05→09:27)
[2017-04-24 04:02] LABS: Basophils % 0.1 %; Eosinophils # 0.2 K/mcL (0.0-0.6); Eosinophils % 1.2 %; Hematocrit 29.4 % (35.3-44.9); Immature Granulocytes % 1.4 % (0-4); Lymphocytes # 0.9 K/mcL (0.6-4.6); Lymphocytes % 5.8 %; Mean Corpuscular HGB Conc 31.3 g/dL (31.6-35.5); Mean Corpuscular Hemoglobin 29.2 pg (28.0-33.3); Mean Corpuscular Volume 93.3 fL (83.0-100.0); Mean Platelet Volume 9.7 fL (9.4-12.4); Monocytes # 1.5 K/mcL (0.0-1.3); Monocytes % 10.1 %; Neutrophils # 12.4 K/mcL (1.6-8.9); Platelet Count 322 K/mcL (140-400); Red Blood Count 3.15 M/mcL (3.82-4.97); Red Cell Distribution Width 16.6 % (11.5-14.5); Segmented Neutrophils % 81.4 %
[2017-04-24 04:05] LABS: INR 2.5; Prothrombin Time 27.6 Seconds (9.4-12.1)
[2017-04-24 04:20] LABS: Hemoglobin 9.2 g/dL (11.5-15.4)
[2017-04-24 04:21] LABS: Calcium 8.2 mg/dL (8.6-10.8); Potassium 3.8 mEq/L (3.5-4.5)
--- NOTE | 2017-04-24 08:50 | Internal Med Progress Note ---
<Dajuan Anderson - Last Filed: 04/24/17 11:32> Date of Encounter: 04/24/17 Time of Encounter: 08:50 - Assessment and plan (1) C. difficile colitis Current Visit: Yes Status: Acute Assessment and plan: 04/24/17 C. Diff positive in stool WBC 15.2, bun/creatinine stable Patient having solid stool today, only 1 BM this morning Patient is still having significant generalized abdominal pain, has not been asking for PRN pain meds. Nurse is aware and will attempt to control pain more closely Currently on PO Vanc after failed flagyl Continue probiotic GI on board 04/23/17 C. difficile positive with diarrhea. Diarrhea persist after 5 days of po flagyl , switch to iv flagyl plus po vanco now. Closely monitor pt. Cont Lactobacillus. The WBC is still high, will continue close monitor patient and counsulted GI. CT abdominal today shows no signs of megacolon (2) Community acquired pneumonia Current Visit: Yes Status: Resolved Assessment and plan: Patient has been treated with antibiotic for 5 days. Symptoms improved. DC antibiotics. Qualifiers: Laterality: unspecified laterality Qualified Code(s): J18.9 - Pneumonia, unspecified organism (3) A-fib Current Visit: Yes Status: Chronic Assessment and plan: Heart rate is well controlled. Patient is on Coumadin for anticoagulation. Continue monitor PT/INR and pharmacy dose Coumadin Qualifiers: Atrial fibrillation type: unspecified Qualified Code(s): I48.91 - Unspecified atrial fibrillation (4) COPD (chronic obstructive pulmonary disease) with emphysema Current Visit: No Status: Chronic Assessment and plan: Stable. Scattered wheezing resolved, on bronchodilator PRN only. Qualifiers: Emphysema type: centrilobular Qualified Code(s): J43.2 - Centrilobular emphysema (5) Chronic kidney disease (CKD), stage III (moderate) Current Visit: No Status: Chronic Assessment and plan: Serum cr: 1.26, BUN 37, GFR 49 Improving with rehydration, patient at baseline Continue to monitor (6) HTN (hypertension), benign Current Visit: No Status: Chronic Assessment and plan: Continue home medications (7) DVT prophylaxis Current Visit: No Status: Acute Assessment and plan: Anticoagulated with coumadin for A. Fib - Subjective Interval history: The patient is seen and examined at bedside. She notes that she has had significant abdominal pain this morning. She says that she has only had one bowel movement today, and that it was more solid than previous. - Constitutional Vitals: Temp Pulse Resp BP Pulse Ox 98.1 F 65 14 114/77 96 04/24/17 07:42 04/24/17 07:42 04/24/17 07:42 04/24/17 07:42 04/24/17 07:42 General appearance: Present: cachectic, mild distress, A&O X 3, answers questions appropriately Exam: - Head Head exam: Present: atraumatic, normocephalic - Eye Eye exam: Present: PERRL, conjuntiva pink, sclera anicteric Pupils: Present: PERRL - Neck Neck exam general surgery: Present: supple, trachea midline. Absent: lymphadenopathy - Respiratory Respiratory exam: Present: CTAB. Absent: accessory muscle use, rales, rhonchi, wheezes - Cardiovascular Cardiovascular exam: Present: RRR, +S1, +S2. Absent: diastolic murmur, gallop, rubs, systolic murmur - GI/Abdominal GI/Abdominal exam: Present: normal bowel sounds, soft, tenderness (Mild abdominal tenderness), no peritoneal signs. Absent: distended - Extremities Exam Extremities exam: Present: warm, radial pulses palpable and symmetrical. Absent : calf tenderness, cyanotic, pedal edema - Neurological Exam Neurological exam: Present: CN II-XII intact, oriented X3, no focal deficits. Absent: pronater drift, facial droop, speech deficit - Skin Skin exam: Present: dry, intact Internal Medicine: Result - Labs CBC & Chem 7: 04/24/17 03:03 04/24/17 03:03 Labs: Short CBC 04/24/17 Range/Units 03:03 WBC 15.2 H (4.3-11.1) K/mcL Hgb 9.2 L D (11.5-15.4) g/dL Hct 29.4 L (35.3-44.9) % Plt Count 322 (140-400) K/mcL Neutrophils # 12.4 H (1.6-8.9) K/mcL BMP 04/24/17 03:03 Sodium 138 Potassium 3.8 Chloride 102 Carbon Dioxide 26 BUN 37 H Creatinine 1.26 H Glucose 95 Calcium 8.2 L - ABG Interpretation ABG results: PT/INR, D-dimer PT 27.6 Seconds (9.4-12.1) H 04/24/17 03:03 - Impressions Impressions Abdomen/Pelvis CT 04/23/17 10:00 IMPRESSION: 1. Fluid throughout the colon compatible with diarrhea. No definite colonic wall thickening demonstrated 2. Colonic diverticulosis with no evidence of diverticulitis 3. Slightly nodular contour of the liver may indicate cirrhosis. However, there are no findings of portal hypertension 4. Adrenal hypertrophy 5. Cardiomegaly with chronic changes in the lung bases 6. Fat containing umbilical hernia D/ / Alin Santiago MD / Alin Santiago MD Interpreting Provider: Alin Santiago MD - VTE Documentation of Mechanical Device: Intermittent pneumatic compression device Consult Discharge Plan - Plan Referrals: Connie Grijalva MD [Primary Care Provider] - <Manjit Strickland A - Last Filed: 04/24/17 17:38> Date of Encounter: 04/24/17 - Assessment and plan (1) C. difficile colitis Current Visit: Yes Status: Acute (2) A-fib Current Visit: Yes Status: Chronic Qualifiers: Atrial fibrillation type: chronic Qualified Code(s): I48.2 - Chronic atrial fibrillation (3) Chronic kidney disease (CKD) Current Visit: Yes Status: Chronic Qualifiers: Chronic kidney disease stage: stage 3 (moderate) Qualified Code(s): N18.3 - Chronic kidney disease, stage 3 (moderate) (4) Community acquired pneumonia Current Visit: Yes Status: Resolved Qualifiers: Laterality: unspecified laterality Qualified Code(s): J18.9 - Pneumonia, unspecified organism (5) Diastolic heart failure Current Visit: No Status: Chronic Qualifiers: Heart failure chronicity: chronic Qualified Code(s): I50.32 - Chronic diastolic (congestive) heart failure (6) COPD (chronic obstructive pulmonary disease) with emphysema Current Visit: No Status: Chronic Qualifiers: Emphysema type: centrilobular Qualified Code(s): J43.2 - Centrilobular emphysema (7) HTN (hypertension), benign Current Visit: No Status: Chronic - Constitutional Vitals: Temp Pulse Resp BP Pulse Ox 97.9 F 67 14 111/71 98 04/24/17 15:48 04/24/17 15:48 04/24/17 15:48 04/24/17 15:48 04/24/17 15:48 Internal Medicine: Result - Labs CBC & Chem 7: 04/24/17 03:03 04/24/17 03:03 Labs: Short CBC 04/24/17 Range/Units 03:03 WBC 15.2 H (4.3-11.1) K/mcL Hgb 9.2 L D (11.5-15.4) g/dL Hct 29.4 L (35.3-44.9) % Plt Count 322 (140-400) K/mcL Neutrophils # 12.4 H (1.6-8.9) K/mcL BMP 04/24/17 03:03 Sodium 138 Potassium 3.8 Chloride 102 Carbon Dioxide 26 BUN 37 H Creatinine 1.26 H Glucose 95 Calcium 8.2 L - ABG Interpretation ABG results: PT/INR, D-dimer PT 27.6 Seconds (9.4-12.1) H 04/24/17 03:03 - Attending Attestation I examined this patient and my medical decision-making was reviewed with the Resident Physician on 04/24/17. I agree with the documented findings, disposition and treatment plan as described except to the extent set forth below. Ms. Carrington is currently admitted for acute c diff colitis. She remains moderate to high risk due to potential for worsening clinical status. Ms. Carrington is having a lot of nausea - ? meds. Stool solid now after starting Vanc oral. No fever or chills. Abd pain about the same. Sleeping OK. Appetite not great today. Exam Alert. Comfortable Mucus membranes dry Heart irreg - not tachy Lungs diminished Abd soft - no peritoneal findings No edema I/P 1. Acute C diff colitis 2. Nausea Further diagnoses and plan as above.
[2017-04-24] MEDS: Furosemide 40 MG TABLET PO SCH ×2 (09:27→16:21)
[2017-04-24] MEDS: Isosorbide MONOnitrate (24 HR) 30 MG TAB.ER.24H PO SCH (09:27)
[2017-04-24] MEDS: *HR* OxyCODONE Immed Rel 5 MG TABLET PO PRN ×2 (09:28→16:21)
[2017-04-24] MEDS: Diltiazem CD (24hr) 240 MG CAPSULE PO SCH (09:28)
[2017-04-24] MEDS: Lactobacillus 1 EACH CAP.SPRINK PO SCH (09:28)
[2017-04-24] MEDS: *HR* LORazepam 1 MG TABLET PO SCH ×2 (09:28→21:17)
[2017-04-24] MEDS: Metoprolol XL (24 HR) Succ 50 MG TAB.ER.24H PO SCH (09:28)
[2017-04-24] MEDS: Vancomycin Oral Soln 250 MG/5 ML UDC PO SCH ×4 (09:29→21:11)
[2017-04-24] MEDS: Morphine Oral CONC 5 MG/0.25 ML ORAL.SYG PO PRN ×2 (13:02→21:12)
[2017-04-24] MEDS: 0.9 % Sodium Chloride 1,000 ML IVC SCH (16:49)
[2017-04-25 06:41] LABS: Basophils % 0.2 %; Eosinophils # 0.2 K/mcL (0.0-0.6); Eosinophils % 1.5 %; Hematocrit 28.4 % (35.3-44.9); Hemoglobin 8.8 g/dL (11.5-15.4); Immature Granulocytes % 1.1 % (0-4); Lymphocytes # 0.8 K/mcL (0.6-4.6); Lymphocytes % 7.9 %; Mean Corpuscular Hemoglobin 29.6 pg (28.0-33.3); Mean Corpuscular Volume 95.6 fL (83.0-100.0); Mean Platelet Volume 9.7 fL (9.4-12.4); Monocytes # 1.1 K/mcL (0.0-1.3); Neutrophils # 8.4 K/mcL (1.6-8.9); Platelet Count 268 K/mcL (140-400); Red Blood Count 2.97 M/mcL (3.82-4.97); Red Cell Distribution Width 16.9 % (11.5-14.5); Segmented Neutrophils % 79.3 %
[2017-04-25 06:47] LABS: Prothrombin Time 32.8 Seconds (9.4-12.1)
[2017-04-25 06:52] LABS: Calcium 8.1 mg/dL (8.6-10.8); Potassium 3.4 mEq/L (3.5-4.5)
[2017-04-25] MEDS: Isosorbide MONOnitrate (24 HR) 30 MG TAB.ER.24H PO SCH (08:26)
[2017-04-25] MEDS: Furosemide 40 MG TABLET PO SCH ×2 (08:26→16:24)
[2017-04-25] MEDS: Lactobacillus 1 EACH CAP.SPRINK PO SCH (08:27)
[2017-04-25] MEDS: Metoprolol XL (24 HR) Succ 50 MG TAB.ER.24H PO SCH (08:27)
[2017-04-25] MEDS: Diltiazem CD (24hr) 240 MG CAPSULE PO SCH (08:27)
[2017-04-25] MEDS: *HR* LORazepam 1 MG TABLET PO SCH ×2 (08:27→20:58)
[2017-04-25] MEDS: Vancomycin Oral Soln 250 MG/5 ML UDC PO SCH ×4 (08:28→20:59)
--- NOTE | 2017-04-25 10:57 | Internal Med Progress Note ---
<Dajuan Anderson - Last Filed: 04/25/17 16:44> Date of Encounter: 04/25/17 Time of Encounter: 10:57 - Assessment and plan (1) C. difficile colitis Current Visit: Yes Status: Acute Assessment and plan: 04/25/17 WBC 10.6, BUN/creatinine stable Patient is having solid stools Patient is currently treated only with PO Vanc, Flagyl was discontinued yesterday. Patient is currently on a day 3 of PO Vanc Patient is still having significant generalized abdominal pain, despite use of when necessary pain meds. Prior CT demonstrated no toxic megacolon. We will get a KUB to ensure that there been no development. 04/24/17 C. Diff positive in stool WBC 15.2, bun/creatinine stable Patient having solid stool today, only 1 BM this morning Patient is still having significant generalized abdominal pain, has not been asking for PRN pain meds. Nurse is aware and will attempt to control pain more closely Currently on PO Vanc after failed flagyl Continue probiotic GI on board 04/23/17 C. difficile positive with diarrhea. Diarrhea persist after 5 days of po flagyl , switch to iv flagyl plus po vanco now. Closely monitor pt. Cont Lactobacillus. The WBC is still high, will continue close monitor patient and counsulted GI. CT abdominal today shows no signs of megacolon (2) Community acquired pneumonia Current Visit: Yes Status: Resolved Assessment and plan: Patient has been treated with antibiotic for 5 days. Symptoms improved. DC antibiotics. Qualifiers: Laterality: unspecified laterality Qualified Code(s): J18.9 - Pneumonia, unspecified organism (3) A-fib Current Visit: Yes Status: Chronic Assessment and plan: Heart rate is well controlled. Patient is on Coumadin for anticoagulation with INR 3.0. Continue monitor PT/INR and pharmacy dose Coumadin Qualifiers: Atrial fibrillation type: chronic Qualified Code(s): I48.2 - Chronic atrial fibrillation (4) COPD (chronic obstructive pulmonary disease) with emphysema Current Visit: No Status: Chronic Assessment and plan: Stable. Scattered wheezing resolved, on bronchodilator PRN only. Qualifiers: Emphysema type: centrilobular Qualified Code(s): J43.2 - Centrilobular emphysema (5) Chronic kidney disease (CKD), stage III (moderate) Current Visit: No Status: Chronic Assessment and plan: 04/25/17 Serum creatinine 1.14, BUN 34, GFR 46 Improving with rehydration, patient at baseline Serum potassium was 3.4, base potassium chloride by mouth to 20 mEq Correction to yesterday's note GFR was 40, now 46. 9 Serum cr: 1.26, BUN 37, GFR 49 Improving with rehydration, patient at baseline Continue to monitor (6) HTN (hypertension), benign Current Visit: No Status: Chronic Assessment and plan: Continue home medications (7) Anemia Current Visit: Yes Status: Acute Assessment and plan: Acute normocytic anemia, source unknown. Suspected GI bleed Hemoglobin 8.8, down from 10.9 on 04/23/17 We will monitor overnight Qualifiers: Anemia type: unspecified type Qualified Code(s): D64.9 - Anemia, unspecified (8) DVT prophylaxis Current Visit: No Status: Acute Assessment and plan: Anticoagulated with coumadin for A. Fib - Subjective Interval history: The patient is seen and examined at bedside. She still reports abdominal pain generalized. She states that she is also having neck pain, which is chronic. She otherwise is not expressing any chest pain or dyspnea, nor is she having frequent diarrhea. She reports having solid stools over the past 24 hours. She has no other acute complaints. - Constitutional Vitals: Temp Pulse Resp BP Pulse Ox 98.2 F 76 14 123/84 98 04/25/17 08:05 04/25/17 08:05 04/25/17 08:05 04/25/17 08:05 04/25/17 08:05 General appearance: Present: cachectic, mild distress, A&O X 3, answers questions appropriately Exam: - Head Head exam: Present: atraumatic, normocephalic - Eye Eye exam: Present: PERRL, conjuntiva pink, sclera anicteric Pupils: Present: PERRL - Neck Neck exam general surgery: Present: supple, trachea midline. Absent: lymphadenopathy - Respiratory Respiratory exam: Present: CTAB. Absent: accessory muscle use, rales, rhonchi, wheezes - Cardiovascular Cardiovascular exam: Present: RRR, +S1, +S2. Absent: diastolic murmur, gallop, rubs, systolic murmur - GI/Abdominal GI/Abdominal exam: Present: normal bowel sounds, soft, tenderness (Mild abdominal tenderness), no peritoneal signs. Absent: distended - Extremities Exam Extremities exam: Present: warm, radial pulses palpable and symmetrical. Absent : calf tenderness, cyanotic, pedal edema - Neurological Exam Neurological exam: Present: CN II-XII intact, oriented X3, no focal deficits. Absent: pronater drift, facial droop, speech deficit - Skin Skin exam: Present: dry, intact Internal Medicine: Result - Labs CBC & Chem 7: 04/25/17 06:21 04/25/17 06:21 Labs: Short CBC 04/25/17 Range/Units 06:21 WBC 10.6 (4.3-11.1) K/mcL Hgb 8.8 L (11.5-15.4) g/dL Hct 28.4 L (35.3-44.9) % Plt Count 268 (140-400) K/mcL Neutrophils # 8.4 (1.6-8.9) K/mcL BMP 04/25/17 06:21 Sodium 137 Potassium 3.4 L Chloride 103 Carbon Dioxide 29 BUN 28 H Creatinine 1.13 H Glucose 96 Calcium 8.1 L - ABG Interpretation ABG results: PT/INR, D-dimer PT 32.8 Seconds (9.4-12.1) H 04/25/17 06:21 - VTE Documentation of Mechanical Device: Intermittent pneumatic compression device Consult Discharge Plan - Plan Referrals: Connie Grijalva MD [Primary Care Provider] - <Manjit Strickland A - Last Filed: 04/25/17 18:11> Date of Encounter: 04/25/17 - Assessment and plan (1) C. difficile colitis Current Visit: Yes Status: Acute (2) A-fib Current Visit: Yes Status: Chronic Qualifiers: Atrial fibrillation type: chronic Qualified Code(s): I48.2 - Chronic atrial fibrillation (3) Chronic kidney disease (CKD) Current Visit: Yes Status: Chronic Qualifiers: Chronic kidney disease stage: stage 3 (moderate) Qualified Code(s): N18.3 - Chronic kidney disease, stage 3 (moderate) (4) Community acquired pneumonia Current Visit: Yes Status: Resolved Qualifiers: Laterality: unspecified laterality Qualified Code(s): J18.9 - Pneumonia, unspecified organism (5) Diastolic heart failure Current Visit: No Status: Chronic Qualifiers: Heart failure chronicity: chronic Qualified Code(s): I50.32 - Chronic diastolic (congestive) heart failure (6) COPD (chronic obstructive pulmonary disease) with emphysema Current Visit: No Status: Chronic Qualifiers: Emphysema type: centrilobular Qualified Code(s): J43.2 - Centrilobular emphysema (7) HTN (hypertension), benign Current Visit: No Status: Chronic (8) Anemia Current Visit: Yes Status: Acute Qualifiers: Anemia type: other cause Other causes of anemia: chronic disease, other Qualified Code(s): D63.8 - Anemia in other chronic diseases classified elsewhere - Constitutional Vitals: Temp Pulse Resp BP Pulse Ox 98.2 F 73 12 134/85 93 04/25/17 15:51 04/25/17 15:51 04/25/17 15:51 04/25/17 15:51 04/25/17 15:51 Internal Medicine: Result - Labs CBC & Chem 7: 04/25/17 06:21 04/25/17 06:21 Labs: Short CBC 04/25/17 Range/Units 06:21 WBC 10.6 (4.3-11.1) K/mcL Hgb 8.8 L (11.5-15.4) g/dL Hct 28.4 L (35.3-44.9) % Plt Count 268 (140-400) K/mcL Neutrophils # 8.4 (1.6-8.9) K/mcL BMP 04/25/17 06:21 Sodium 137 Potassium 3.4 L Chloride 103 Carbon Dioxide 29 BUN 28 H Creatinine 1.13 H Glucose 96 Calcium 8.1 L - ABG Interpretation ABG results: PT/INR, D-dimer PT 32.8 Seconds (9.4-12.1) H 04/25/17 06:21 - Attending Attestation I examined this patient and my medical decision-making was reviewed with the Resident Physician on 04/25/17. I agree with the documented findings, disposition and treatment plan as described except to the extent set forth below. Ms. Carrington is currently admitted for acute C diff colitis. She remains moderate to high risk due to anemia and continued abdominal pain with potential for worsening abdominal status. Ms Carrington is having some abd pain but says this is chronic for her. No fever or chills. Hemoglobin has decreased but no active bleeding noted. Exam Alert. Comfortable Heart not tachy Lungs clear Diffuse abd pain- no peritoneal signs. No edema I/P 1. C diff 2. Anemia Further diagnoses and plan as above.
[2017-04-25] MEDS: *HR* OxyCODONE Immed Rel 5 MG TABLET PO PRN ×2 (12:59→18:10)
[2017-04-25] MEDS: Morphine Oral CONC 5 MG/0.25 ML ORAL.SYG PO PRN ×2 (16:25→20:59)
[2017-04-25] MEDS: 0.9 % Sodium Chloride 1,000 ML IVC SCH (18:00)
[2017-04-25] MEDS: Ondansetron ODT 4 MG TAB.RAPDIS PO PRN (18:10)
[2017-04-26] MEDS: Morphine Oral CONC 5 MG/0.25 ML ORAL.SYG PO PRN ×2 (01:10→22:10)
[2017-04-26 03:55] LABS: INR 2.9; Prothrombin Time 31.7 Seconds (9.4-12.1)
[2017-04-26 04:02] LABS: Basophils % 0.1 %; Eosinophils # 0.2 K/mcL (0.0-0.6); Eosinophils % 1.4 %; Hematocrit 29.2 % (35.3-44.9); Immature Granulocytes % 0.7 % (0-4); Lymphocytes # 0.8 K/mcL (0.6-4.6); Lymphocytes % 7.2 %; Mean Corpuscular HGB Conc 30.8 g/dL (31.6-35.5); Mean Corpuscular Hemoglobin 29.8 pg (28.0-33.3); Mean Corpuscular Volume 96.7 fL (83.0-100.0); Mean Platelet Volume 9.8 fL (9.4-12.4); Monocytes % 9.3 %; Neutrophils # 8.6 K/mcL (1.6-8.9); Platelet Count 271 K/mcL (140-400); Red Blood Count 3.02 M/mcL (3.82-4.97); Red Cell Distribution Width 17.1 % (11.5-14.5); Segmented Neutrophils % 81.3 %
[2017-04-26] MEDS: Furosemide 40 MG TABLET PO SCH ×2 (08:40→16:46)
[2017-04-26] MEDS: *HR* LORazepam 1 MG TABLET PO SCH ×2 (08:40→22:11)
[2017-04-26] MEDS: Diltiazem CD (24hr) 240 MG CAPSULE PO SCH (08:40)
[2017-04-26] MEDS: Lactobacillus 1 EACH CAP.SPRINK PO SCH (08:40)
[2017-04-26] MEDS: *HR* OxyCODONE Immed Rel 5 MG TABLET PO PRN ×2 (08:40→12:43)
[2017-04-26] MEDS: Metoprolol XL (24 HR) Succ 50 MG TAB.ER.24H PO SCH (08:40)
[2017-04-26] MEDS: Isosorbide MONOnitrate (24 HR) 30 MG TAB.ER.24H PO SCH (08:40)
[2017-04-26] MEDS: Vancomycin Oral Soln 250 MG/5 ML UDC PO SCH ×4 (08:41→22:11)
--- NOTE | 2017-04-26 10:47 | Discharge Summary ---
<Dajuan Anderson - Last Filed: 04/26/17 17:34> Date of Encounter: 04/26/17 Time of Encounter: 08:30 - Discharge Diagnosis (1) C. difficile colitis Priority: Primary Status: Acute Comments: White blood cell 10.6 and afebrile, BUN/creatinine stable Patient reportedly having loose stools again, continue by mouth vancomycin Patient was having significant abdominal pain. KUB demonstrated no acute abdominal process. Abdominal pain has resolved following insertion of Sanchez catheter. (2) Community acquired pneumonia Priority: Primary Status: Resolved Comments: Patient presented with community-acquired pneumonia on admission Completed a 5 day course of antibiotics and pneumonia has resolved. Patient does not complain of any shortness of breath and cough has resolved Qualifiers: Laterality: unspecified laterality Qualified Code(s): J18.9 - Pneumonia, unspecified organism (3) A-fib Priority: Secondary Status: Chronic Comments: Heart rate is well controlled Patient is on Coumadin for anticoagulation with INR of 2.9 Qualifiers: Atrial fibrillation type: chronic Qualified Code(s): I48.2 - Chronic atrial fibrillation (4) COPD (chronic obstructive pulmonary disease) with emphysema Priority: Secondary Status: Chronic Comments: Stable, patient should present to PCP for long-term management Qualifiers: Emphysema type: centrilobular Qualified Code(s): J43.2 - Centrilobular emphysema (5) Chronic kidney disease (CKD), stage III (moderate) Priority: Secondary Status: Chronic Comments: Serum creatinine 0.98, BUN 21. GFR 54 Return to baseline Patient should follow up for long-term management (6) HTN (hypertension), benign Priority: Secondary Status: Chronic Comments: Continue meds (7) Anemia Priority: Secondary Status: Acute Comments: Acute normocytic anemia, source unknown. Possible GI bleed Hemoglobin is stable, increased to 9.0 Patient should follow up with GI outpatient in order to determine possible source of GI bleed. Qualifiers: Anemia type: other cause Other causes of anemia: chronic disease, other Qualified Code(s): D63.8 - Anemia in other chronic diseases classified elsewhere (8) Urinary retention with incomplete bladder emptying Priority: Secondary Status: Acute Comments: Patient complaining of acute abdominal pain in the lower abdominal upper pelvic region. Bladder scan demonstrated 321 mL. Sanchez catheter was placed, patient immediately reported relieved pain. (9) DVT prophylaxis Priority: Secondary Status: Acute - Discharge Medications Prescriptions: Cholestyramine 4 gm PO BIDAC 10 Days powd.pack Lactobacillus [Culturelle] 2 each PO DAILY #60 cap.sprink Nystatin Cream [Mycostatin Cream] 1 appl TP TID #1 tube Vancomycin Oral Soln [Vancocin] 125 mg PO QID 9 Days udc Home Medications: Isosorbide MONOnitrate (24 HR) [Imdur] 30 mg PO QAM #0 05/15/15 [History] Furosemide [Lasix] 80 mg PO BID #60 tablet 03/14/16 [Rx] Docusate [Colace] 100 mg PO BID #60 capsule 03/15/16 [Rx] LORazepam [Ativan] 0.5 mg PO Q4H PRN 04/22/16 [History] Ondansetron [Zofran] 8 mg PO TID PRN 04/22/16 [History] OxyCODONE Immed Rel [Roxicodone 5 MG] 5 mg PO Q4H PRN 04/22/16 [History] Polyethylene Glycol 3350 [MiraLAX] 17 gm PO DAILY 04/22/16 [History] Potassium Chloride [Klor-Con Sprinkle] 10 meq PO QAM 04/22/16 [History] TraZODone 25 mg PO BID PRN 04/22/16 [History] Atropine Sulfate in 0.9% NaCl [Atropine 0.01%-Ns Eye Drops] 2 drop SL Q2H PRN [History] Diltiazem HCl [Diltiazem ER] 240 mg PO DAILY 04/12/17 [History] Escitalopram Oxalate 5 mg PO QAM 04/12/17 [History] Ipratropium/Albuterol Neb [Duoneb] 3 ml IH Q6H PRN 04/12/17 [History] LORazepam [Ativan] 1 mg PO BID 04/12/17 [History] Metoprolol XL (24 HR) Succ [Toprol Xl] 50 mg PO DAILY 04/12/17 [History] Morphine Oral CONC [Roxanol] 5 mg PO Q4H PRN 04/12/17 [History] Omeprazole [PriLOSEC] 20 mg PO DAILY 04/12/17 [History] Oxygen 3 - 5 l NS CONT 04/12/17 [History] Warfarin [Coumadin] 1.25 mg PO DAILY 04/13/17 [History] Acetaminophen [Tylenol] 650 mg PO Q6HR PRN tablet 04/26/17 [Rx] Albuterol Neb [Proventil Neb] 2.5 mg IH Q2H PRN inhsol 04/26/17 [Rx] Cholestyramine 4 gm PO BIDAC 10 Days powd.pack 04/26/17 [Rx] Lactobacillus [Culturelle] 2 each PO DAILY #60 cap.sprink 04/26/17 [Rx] Nystatin Cream [Mycostatin Cream] 1 appl TP TID #1 tube 04/26/17 [Rx] Vancomycin Oral Soln [Vancocin] 125 mg PO QID 9 Days udc 04/26/17 [Rx] Allergies/Adverse Reactions: 3 Allergy/AdvReac Type Severity Reaction Status Date / Time atorvastatin [From Lipitor] AdvReac See Verified 03/03/16 07:42 Comments Sulfa (Sulfonamide AdvReac Rash Verified 03/03/16 07:42 Antibiotics) Procedures/tests Complete & Pending: Procedures Performed prior 72 hours Category Date Time Status CT abd pelvis wo no iv no oral [CT] Stat Cat Scan 04/23/17 10:00 Completed Date of admission: 04/12/17 22:13 Primary care physician: Connie Grijalva MD Consults: 04/12/17 22:17 Consult to Trouble Shooter [CONS] Routine Reason for SW Consult: discharge planning 04/12/17 23:26 Consult to Pastoral Services [CONS] Routine Comment: 04/13/17 01:01 Consult to Palliative Care [CONS] Routine Comment: Consulting Provider: Palliative Care [place] Reason for Consult: CHF, COPD, atrial fibrillation, DNR status Call Completed: No 04/23/17 07:48 Consult to Gastroenterology [CONS] Routine Consulting Provider: Gastroenterology [place] Reason for Consult: C Diff colitis, elevated WBC even on iv flagyl and po vanco Call Completed: Yes Discharging clinician: Dajuan Anderson - Patient Status Disposition: Hospice - Home Condition: Fair Functional capacity at discharge: bed bound Overall status at discharge: patient is not back to baseline - Discharge Instructions Follow Up With: Connie Grijalva MD [Primary Care Provider] - Additional Instructions: Patient should follow up with primary care within 1-2 weeks of discharge. Conversation with family was extensive to include direction for 19/02 care at the patient. Son says that he agrees with this plan. The patient will take by mouth vancomycin as directed to complete 14 days of treatment - Diet and Activity Activity: increase activity as tolerated Diet: advance to your usual diet Hospital course: Ms. Carrington is a 87 year old female with history of oxygen dependent COPD, atrial fibrillation, diastolic heart failure, multi valvular disease, coronary artery disease, hypertension, hyperlipidemia, thyroid disease, CK D stage IV, aortic aneurysm. This patient is on hospice for multiple chronic issues. She presented to the ED due to increasing shortness of breath that have been going on for 2 days and generalized weakness along with productive cough and decreased oral intake. Z-Hemanth for Sunday before admission and had taken 2 doses prior to coming to the ED. Her son, with whom she lives, stated that she he had noticed a significant decline in the past 2 days. In the ED she was found to have leukocytosis of 17.4 troponin 0.03 BNP of 146 creatinine of 1.89 lactate 0.9 and INR 5.4. Urinalysis revealed large amounts of leukocyte esterase, chest x-ray showed bilateral perihilar infiltrates. Small effusions were also noted, CHF versus pneumonia. CT of the head was negative for any intracranial abnormalities. Blood cultures were obtained and the patient was given IV fluid as well as antibiotics. She was admitted to the hospital to be treated for community-acquired pneumonia, for which she was treated with vancomycin and Zosyn. On hospital day 2 the patient was just related to azithromycin and Rocephin as blood cultures were negative. At this time she also developed more wheezing suggestive of COPD exacerbation with emphysema, and bronchodilator was continued and prednisone was added. The patient completed 5 total days of antibiotics for the community-acquired pneumonia. On hospital day 6 the patient began experiencing some diarrhea and some nausea. PCR was completed and found to have positive C. difficile colitis. Flagyl PO was started, and on hospital day 9, by mouth vancomycin was added and Flagyl was switched to IV. The patient showed improvement, and IV Flagyl was discontinued. The patient is to remain on by mouth vancomycin for a total duration of 14 days. On hospital day 12, the patient continued to have abdominal pain and lower abdominal and pelvic region. Bladder scan demonstrated excess urine, patient admitted that she was not able to void her urine. Additionally the patient was having increased diarrhea overnight. The patient received a Sanchez catheterization and her pain resolved at that time. Extensive conversation has been held with family members determining will take care of her when she is able to be discharged. Her son indicates that she has 24/ care at his home. - Time Spent with Patient Total time spent providing and/or coordinating discharge services: - Constitutional Vitals: Temp Pulse Resp BP Pulse Ox 98.3 F 80 20 133/91 93 04/26/17 07:34 04/26/17 07:34 04/26/17 07:34 04/26/17 07:34 04/26/17 07:34 General appearance: Present: cachectic, mild distress, A&O X 3, answers questions appropriately Exam: - Head Head exam: Present: atraumatic, normocephalic - Eye Eye exam: Present: PERRL, conjuntiva pink, sclera anicteric Pupils: Present: PERRL - Neck Neck exam general surgery: Present: supple, trachea midline. Absent: lymphadenopathy - Respiratory Respiratory exam: Present: CTAB. Absent: accessory muscle use, rales, rhonchi, wheezes - Cardiovascular Cardiovascular exam: Present: RRR, +S1, +S2. Absent: diastolic murmur, gallop, rubs, systolic murmur - GI/Abdominal GI/Abdominal exam: Present: normal bowel sounds, soft, tenderness (Mild abdominal tenderness, primarily over the lower abdomen, midline), no peritoneal signs. Absent: distended - Extremities Exam Extremities exam: Present: warm, radial pulses palpable and symmetrical. Absent : calf tenderness, cyanotic, pedal edema - Neurological Exam Neurological exam: Present: CN II-XII intact, oriented X3, no focal deficits. Absent: pronater drift, facial droop, speech deficit - Skin Skin exam: Present: dry, intact - VTE Documentation of Mechanical Device: Intermittent pneumatic compression device <Manjit Strickland - Last Filed: 04/26/17 18:55> Date of Encounter: 04/26/17 - Discharge Diagnosis (1) C. difficile colitis Status: Acute (2) A-fib Status: Chronic Qualifiers: Atrial fibrillation type: chronic Qualified Code(s): I48.2 - Chronic atrial fibrillation (3) Acute urinary retention Priority: Secondary Status: Acute (4) Chronic kidney disease (CKD) Priority: Secondary Status: Chronic Qualifiers: Chronic kidney disease stage: stage 3 (moderate) Qualified Code(s): N18.3 - Chronic kidney disease, stage 3 (moderate) (5) Community acquired pneumonia Status: Resolved Qualifiers: Laterality: unspecified laterality Qualified Code(s): J18.9 - Pneumonia, unspecified organism (6) Diastolic heart failure Priority: Secondary Status: Chronic Qualifiers: Heart failure chronicity: chronic Qualified Code(s): I50.32 - Chronic diastolic (congestive) heart failure (7) COPD (chronic obstructive pulmonary disease) with emphysema Status: Chronic Qualifiers: Emphysema type: centrilobular Qualified Code(s): J43.2 - Centrilobular emphysema (8) HTN (hypertension), benign Status: Chronic (9) Anemia Status: Acute Qualifiers: Anemia type: other cause Other causes of anemia: chronic disease, other Qualified Code(s): D63.8 - Anemia in other chronic diseases classified elsewhere Date of admission: 04/12/17 22:13 Primary care physician: Connie Grijalva MD Consults: 04/12/17 22:17 Consult to Trouble Shooter [CONS] Routine Reason for SW Consult: discharge planning 04/12/17 23:26 Consult to Pastoral Services [CONS] Routine Comment: 04/13/17 01:01 Consult to Palliative Care [CONS] Routine Comment: Consulting Provider: Palliative Care [place] Reason for Consult: CHF, COPD, atrial fibrillation, DNR status Call Completed: No 04/23/17 07:48 Consult to Gastroenterology [CONS] Routine Consulting Provider: Gastroenterology [place] Reason for Consult: C Diff colitis, elevated WBC even on iv flagyl and po vanco Call Completed: Yes Hospital course: Ms. Carrington is a 87 year old female - Time Spent with Patient Total time spent providing and/or coordinating discharge services: 38min - Constitutional Vitals: Temp Pulse Resp BP Pulse Ox 97.8 F 73 18 121/75 100 04/26/17 15:32 04/26/17 15:32 04/26/17 15:32 04/26/17 15:32 04/26/17 15:32 - Attending Attestation I examined this patient and my medical decision-making was reviewed with the Resident Physician on 04/26/17. I agree with the documented findings, disposition and treatment plan as described except to the extent set forth below. Ms. Carrington is currently admitted for acute c diff colitis and pneumonia. She has continued abd pain and recurrent diarrhea today. She remains moderate to high risk due to potential for worsening GI status. Ms Carrington had significant abd pain this AM and was unable to urinate. She had sanchez placed with relief. Diarrhea returned last night. No fever or chills. No cough. No fever or chills. Soon ready for discharge. Exam Alert. Comfortable Mucus membranes dry Heart not tachy Lungs diminished Abd soft - less tender No edema I/P 1. Urinary retention 2. Diarrhea related to C diff - try Questran Further diagnoses and plan as above. Anticipate d/c soon
[2017-04-26 11:04] LABS: BUN/Creatinine Ratio 21 (6-26); Blood Urea Nitrogen 21 mg/dL (7-20); Calcium 8.1 mg/dL (8.6-10.8); Carbon Dioxide 26 mEq/L (19-29); Chloride 104 mEq/L (98-109); Glucose 97 mg/dL (70-99); Osmolality,Calculated 289 (280-300); Potassium 3.9 mEq/L (3.5-4.5); Sodium 138 mEq/L (136-145); eGFR For African Americans > 60 (> 60); eGFR For Non-African Americans 54 (> 60)
[2017-04-26] MEDS: Nystatin Cream 15 GM TUBE TP SCH (14:31)
[2017-04-26] MEDS ORDERED: *HR* Warfarin 1 MG TABLET PO ONE (18:00)
[2017-04-26] MEDS: Cholestyramine 4 GM POWD.PACK PO SCH (19:52)
[2017-04-27] MEDS: Nystatin Cream 15 GM TUBE TP SCH ×2 (00:54→09:24)
[2017-04-27 03:06] LABS: INR 2.5; Prothrombin Time 27.3 Seconds (9.4-12.1)
[2017-04-27 03:13] LABS: BUN/Creatinine Ratio 20 (6-26); Blood Urea Nitrogen 20 mg/dL (7-20); Calcium 8.1 mg/dL (8.6-10.8); Carbon Dioxide 28 mEq/L (19-29); Chloride 105 mEq/L (98-109); Glucose 102 mg/dL (70-99); Osmolality,Calculated 291 (280-300); Potassium 3.8 mEq/L (3.5-4.5); Sodium 139 mEq/L (136-145); eGFR For African Americans > 60 (> 60); eGFR For Non-African Americans 54 (> 60)
[2017-04-27] MEDS: Cholestyramine 4 GM POWD.PACK PO SCH (06:49)
[2017-04-27] MEDS: Ondansetron ODT 4 MG TAB.RAPDIS PO PRN (08:12)
[2017-04-27] MEDS: Metoprolol XL (24 HR) Succ 50 MG TAB.ER.24H PO SCH (09:15)
[2017-04-27] MEDS: Diltiazem CD (24hr) 240 MG CAPSULE PO SCH (09:15)
[2017-04-27] MEDS: Lactobacillus 1 EACH CAP.SPRINK PO SCH (09:15)
[2017-04-27] MEDS: Isosorbide MONOnitrate (24 HR) 30 MG TAB.ER.24H PO SCH (09:15)
[2017-04-27] MEDS: *HR* LORazepam 1 MG TABLET PO SCH (09:15)
[2017-04-27] MEDS: Vancomycin Oral Soln 250 MG/5 ML UDC PO SCH ×2 (09:17→13:11)
[2017-04-27] MEDS: Morphine Oral CONC 5 MG/0.25 ML ORAL.SYG PO PRN ×2 (09:18→13:11)
[2017-04-27] MEDS: Furosemide 40 MG TABLET PO SCH (09:20)
--- NOTE | 2017-04-27 10:36 | Internal Med Progress Note ---
<Dajuan Anderson - Last Filed: 04/27/17 15:12> Date of Encounter: 04/27/17 Time of Encounter: 09:00 - Assessment and plan (1) C. difficile colitis Status: Acute Assessment and plan: C. difficile colitis, improved Patient has no longer complaining of diarrhea Nursing reports soft solid stool overnight Patient will be discharged on PO vanc for a total duration of 14 days therapy The patient will also be discharged on Questran Extensive discussion with her family has shown that they are capable and prepared to care for her at home (2) Community acquired pneumonia Status: Resolved Assessment and plan: Patient has been treated with antibiotic for 5 days. Symptoms improved. DC'd antibiotics. Qualifiers: Laterality: unspecified laterality Qualified Code(s): J18.9 - Pneumonia, unspecified organism (3) A-fib Status: Chronic Assessment and plan: Heart rate is well controlled. Patient is on Coumadin for anticoagulation with INR 2.9. Continue monitor PT/INR and pharmacy dose Coumadin Qualifiers: Atrial fibrillation type: chronic Qualified Code(s): I48.2 - Chronic atrial fibrillation (4) COPD (chronic obstructive pulmonary disease) with emphysema Status: Chronic Assessment and plan: Stable. Qualifiers: Emphysema type: centrilobular Qualified Code(s): J43.2 - Centrilobular emphysema (5) Chronic kidney disease (CKD), stage III (moderate) Status: Chronic Assessment and plan: Serum creatinine 0.98, BUN 28, estimated GFR 54 The patient is making urine appropriately Monitor outpatient (6) HTN (hypertension), benign Status: Chronic Assessment and plan: Continue home medications (7) Anemia Status: Acute Assessment and plan: Acute normocytic anemia, source unknown. Possible GI Bleed Stool Occult blood negative Patient should follow up with primary care outpatient Qualifiers: Anemia type: other cause Other causes of anemia: chronic disease, other Qualified Code(s): D63.8 - Anemia in other chronic diseases classified elsewhere (8) Urinary retention with incomplete bladder emptying Status: Acute Assessment and plan: Abdominal pain secondary to urinary retention, resolved Patient has indwelling urinary catheter, will require home health care (9) Dermatitis associated with moisture from stool incontinence Status: Acute Assessment and plan: Dermatitis with moisture located in crural folds, gluteal cleft, gluteal folds and with some involvement of the perineum Patient expresses pain and tenderness to that area patient will receive 1 dose of oral Diflucan Nystatin cream has been applied. patient will be discharged with nystatin cream and nystatin powder (10) DVT prophylaxis Status: Acute Assessment and plan: Anticoagulated with coumadin for A. Fib - Subjective Interval history: The patient is seen and examined at bedside. She says her abdominal pain has largely resolved, and she has had solid stools overnight. She does admit that she is having increased pain on her buttock, which is burning in nature. - Constitutional Vitals: Temp Pulse Resp BP Pulse Ox 97.7 F 73 18 131/86 99 04/27/17 07:54 04/27/17 07:54 04/27/17 07:54 04/27/17 07:54 04/27/17 07:54 General appearance: Present: cachectic, mild distress, A&O X 3, answers questions appropriately Exam: - Head Head exam: Present: atraumatic, normocephalic - Eye Eye exam: Present: PERRL, conjuntiva pink, sclera anicteric Pupils: Present: PERRL - Neck Neck exam general surgery: Present: supple, trachea midline. Absent: lymphadenopathy - Respiratory Respiratory exam: Present: CTAB. Absent: accessory muscle use, rales, rhonchi, wheezes - Cardiovascular Cardiovascular exam: Present: RRR, +S1, +S2. Absent: diastolic murmur, gallop, rubs, systolic murmur - GI/Abdominal GI/Abdominal exam: Present: normal bowel sounds, soft, tenderness (Mild abdominal tenderness, primarily over the lower abdomen, midline), no peritoneal signs. Absent: distended - Extremities Exam Extremities exam: Present: warm, radial pulses palpable and symmetrical. Absent : calf tenderness, cyanotic, pedal edema - Neurological Exam Neurological exam: Present: CN II-XII intact, oriented X3, no focal deficits. Absent: pronater drift, facial droop, speech deficit - Skin Skin exam: Erythematous rash with excoriations present in the inguinal folds, as well as along the gluteal cleft bilaterally and into the gluteal folds. The perineum is mildly involved Internal Medicine: Result - Labs CBC & Chem 7: 04/26/17 03:02 04/27/17 02:47 Labs: BMP 04/26/17 04/27/17 10:34 02:47 Sodium 138 139 Potassium 3.9 3.8 Chloride 104 105 Carbon Dioxide 26 28 BUN 21 H 20 Creatinine 0.98 0.98 Glucose 97 102 H Calcium 8.1 L 8.1 L - ABG Interpretation ABG results: PT/INR, D-dimer PT 27.3 Seconds (9.4-12.1) H 04/27/17 02:47 - VTE Documentation of Mechanical Device: Intermittent pneumatic compression device Consult Discharge Plan - Plan Instructions: Cholestyramine (By mouth), Nystatin/Triamcinolone (On the skin), Vancomycin (By mouth), Probiotic (By mouth), Acute Respiratory Distress Syndrome (DC), Urinary Tract Infection in Women (DC), Sepsis (DC), Clostridium Difficile Infection (DC), Pneumonia (DC) Additional Instructions: Patient should follow up with primary care within 1-2 weeks of discharge. Conversation with family was extensive to include direction for 19/02 care at the patient. Son says that he agrees with this plan. The patient will take by mouth vancomycin as directed to complete 14 days of treatment Indwelling catheter will require daily care Dermatitis will require daily care Referrals: Connie Grijalva MD [Primary Care Provider] - 05/22/17 2:00 pm (will be seen at home ) Prescriptions: Cholestyramine 4 gm PO BIDAC 10 Days powd.pack Lactobacillus [Culturelle] 2 each PO DAILY #60 cap.sprink Nystatin Cream [Mycostatin Cream] 1 appl TP TID #1 tube Nystatin POWDER [Nystop] 1 appl TP TID #1 bottle Vancomycin Oral Soln [Vancocin] 125 mg PO QID 9 Days udc <Manjit Strickland A - Last Filed: 04/27/17 17:45> Date of Encounter: 04/27/17 - Assessment and plan (1) C. difficile colitis Status: Acute (2) A-fib Status: Chronic Qualifiers: Atrial fibrillation type: chronic Qualified Code(s): I48.2 - Chronic atrial fibrillation (3) Acute urinary retention Status: Acute (4) Chronic kidney disease (CKD) Status: Chronic Qualifiers: Chronic kidney disease stage: stage 3 (moderate) Qualified Code(s): N18.3 - Chronic kidney disease, stage 3 (moderate) (5) Community acquired pneumonia Status: Resolved Qualifiers: Laterality: unspecified laterality Qualified Code(s): J18.9 - Pneumonia, unspecified organism (6) Diastolic heart failure Status: Chronic Qualifiers: Heart failure chronicity: chronic Qualified Code(s): I50.32 - Chronic diastolic (congestive) heart failure (7) COPD (chronic obstructive pulmonary disease) with emphysema Status: Chronic Qualifiers: Emphysema type: centrilobular Qualified Code(s): J43.2 - Centrilobular emphysema (8) HTN (hypertension), benign Status: Chronic (9) Anemia Status: Acute Qualifiers: Anemia type: other cause Other causes of anemia: chronic disease, other Qualified Code(s): D63.8 - Anemia in other chronic diseases classified elsewhere - Constitutional Vitals: Temp Pulse Resp BP Pulse Ox 98.5 F 69 18 120/82 98 04/27/17 15:38 04/27/17 15:38 04/27/17 15:38 04/27/17 15:38 04/27/17 15:38 Internal Medicine: Result - Labs CBC & Chem 7: 04/26/17 03:02 04/27/17 02:47 Labs: BMP 04/27/17 02:47 Sodium 139 Potassium 3.8 Chloride 105 Carbon Dioxide 28 BUN 20 Creatinine 0.98 Glucose 102 H Calcium 8.1 L - ABG Interpretation ABG results: PT/INR, D-dimer PT 27.3 Seconds (9.4-12.1) H 04/27/17 02:47 - Attending Attestation I examined this patient and my medical decision-making was reviewed with the Resident Physician on 04/27/17. I agree with the documented findings, disposition and treatment plan as described except to the extent set forth below. Ms. Carrington has been admitted for acute c diff colitis. She is doing better today and appears to be at baseline. No fever or chills. Ready for discharge home today. Exam Alert. Comfortable at this time Mucus membranes dry Heart irreg and not tachy Lungs diminished Abd soft I/P 1. C diff colitis 2. a fib 3. Urinary retention Plan d/c today with hospice resumed.
[2017-04-27] MEDS: *HR* OxyCODONE Immed Rel 5 MG TABLET PO PRN (11:40)
--- NOTE | 2017-04-27 14:30 | Physician Discharge Referral ---
Home Health/Hosp Referral Info Transfer to: Hospice Attending Provider: louisa Strickland Provider in Charge Post Discharge: PCP - Diagnosis (1) C. difficile colitis Priority: Primary Status: Acute (2) Community acquired pneumonia Priority: Primary Status: Resolved (3) A-fib Priority: Secondary Status: Chronic (4) COPD (chronic obstructive pulmonary disease) with emphysema Priority: Secondary Status: Chronic (5) Chronic kidney disease (CKD), stage III (moderate) Priority: Secondary Status: Chronic (6) HTN (hypertension), benign Priority: Secondary Status: Chronic (7) Anemia Priority: Secondary Status: Acute (8) Urinary retention with incomplete bladder emptying Priority: Secondary Status: Acute (9) Dermatitis associated with moisture from stool incontinence Priority: Secondary Status: Acute (10) DVT prophylaxis Priority: Secondary Status: Acute - Respiratory Orders Smoking Cessation: Smoking cessation has been advised. For more information, call the [place] Tobacco Quit Line at 3-915-QCEZ-NOW. - Diet/Nutrition Diet/Nutrition Orders: No Added Salt (ZI) - Activity Activity Orders: Bedrest - Services Needed Following services are medically necessary services: Nursing, Home Health Aide Other Treatments: Daily Skin Care in Inguinal folds/Gluteal Cleft - Transfer Medications Prescriptions: Cholestyramine 4 gm PO BIDAC 10 Days powd.pack Lactobacillus [Culturelle] 2 each PO DAILY #60 cap.sprink Nystatin Cream [Mycostatin Cream] 1 appl TP TID #1 tube Vancomycin Oral Soln [Vancocin] 125 mg PO QID 9 Days udc Home Medications: Isosorbide MONOnitrate (24 HR) [Imdur] 30 mg PO QAM #0 05/15/15 [History] Furosemide [Lasix] 80 mg PO BID #60 tablet 03/14/16 [Rx] Docusate [Colace] 100 mg PO BID #60 capsule 03/15/16 [Rx] LORazepam [Ativan] 0.5 mg PO Q4H PRN 04/22/16 [History] Ondansetron [Zofran] 8 mg PO TID PRN 04/22/16 [History] OxyCODONE Immed Rel [Roxicodone 5 MG] 5 mg PO Q4H PRN 04/22/16 [History] Polyethylene Glycol 3350 [MiraLAX] 17 gm PO DAILY 04/22/16 [History] Potassium Chloride [Klor-Con Sprinkle] 10 meq PO QAM 04/22/16 [History] TraZODone 25 mg PO BID PRN 04/22/16 [History] Atropine Sulfate in 0.9% NaCl [Atropine 0.01%-Ns Eye Drops] 2 drop SL Q2H PRN [History] Diltiazem HCl [Diltiazem ER] 240 mg PO DAILY 04/12/17 [History] Escitalopram Oxalate 5 mg PO QAM 04/12/17 [History] Ipratropium/Albuterol Neb [Duoneb] 3 ml IH Q6H PRN 04/12/17 [History] LORazepam [Ativan] 1 mg PO BID 04/12/17 [History] Metoprolol XL (24 HR) Succ [Toprol Xl] 50 mg PO DAILY 04/12/17 [History] Morphine Oral CONC [Roxanol] 5 mg PO Q4H PRN 04/12/17 [History] Omeprazole [PriLOSEC] 20 mg PO DAILY 04/12/17 [History] Oxygen 3 - 5 l NS CONT 04/12/17 [History] Warfarin [Coumadin] 1.25 mg PO DAILY 04/13/17 [History] Acetaminophen [Tylenol] 650 mg PO Q6HR PRN tablet 04/26/17 [Rx] Albuterol Neb [Proventil Neb] 2.5 mg IH Q2H PRN inhsol 04/26/17 [Rx] Cholestyramine 4 gm PO BIDAC 10 Days powd.pack 04/26/17 [Rx] Lactobacillus [Culturelle] 2 each PO DAILY #60 cap.sprink 04/26/17 [Rx] Nystatin Cream [Mycostatin Cream] 1 appl TP TID #1 tube 04/26/17 [Rx] Vancomycin Oral Soln [Vancocin] 125 mg PO QID 9 Days udc 04/26/17 [Rx] Allergies/Adverse Reactions: 3 Allergy/AdvReac Type Severity Reaction Status Date / Time atorvastatin [From Lipitor] AdvReac See Verified 03/03/16 07:42 Comments Sulfa (Sulfonamide AdvReac Rash Verified 03/03/16 07:42 Antibiotics) Certification: Further, I certify that my clinical findings support that this patient is homebound (i.e. absences from home require considerable and taxing effort and are for medical reasons or anabaptist services or infrequently or short duration when for other reasons) because: Homebound Reason: Leaving home requires considerable and taxing effort due to condition, Severity of cardiac or pulmonary status limits activity tolerance Attestation: My signature below is to certify that this patient is under my care and that I, or nurse practitioner, or a physician's assistant drafter working with me, has a face-to -face encounter with this patient.
[2017-04-27 15:39] VITALS: BP 120/82
[2017-04-27] MEDS ORDERED: *HR* Warfarin 1 MG TABLET PO ONE (18:00)
[2017-04-28] MEDS ORDERED: Fluconazole 100 MG TABLET PO SCH (09:00)
== END 2017-04-27 17:35 | disposition hospice, home (50) | DRG 190 ==
LOC: EMEROO 19:32 → 2NENU 19:32 → SUATTDRO 22:13
PROVIDERS: ADMIT Family Medicine; ATTEND Internal Medicine